=== PATIENT | male | born 1945 | race Caucasian/White ===

== ENCOUNTER → 2017-06-05 12:42 | Outpatient (CLI) | payer MEDICARE, SELFPAY ==
--- NOTE | 2017-06-05 12:49 | CT_ITS ---
STUDY: CT CHEST WITHOUT CONTRAST REASON FOR EXAM: Male, 71 years old. Lung nodule. RADIATION DOSAGE (If Supplied By Facility): CTDIvol = ( 19.73 ) mGy, DLP = ( 764.03 ) mGycm TECHNIQUE: Transaxial imaging was performed without the administration of intravenous contrast material. Individualized dose optimization techniques were used for this CT. COMPARISON: 04/30/2014. FINDINGS: There is COPD with interstitial fibrotic changes of the lungs. Findings are stable. No acute abnormality. No nodules or masses. There is no demonstrated pleural abnormality. Normal heart and pericardium. Normal mediastinum. Normal hilar regions. Normal unenhanced pulmonary arteries. Normal aorta arch and descending thoracic aorta. There are multi-level degenerative changes of the thoracic spine. There is no demonstrated abnormality of the visualized upper abdomen. CT/Chest without Contrast IMPRESSION: Stable fibrotic COPD with no acute chest disease and no nodules are seen. Electronically Signed: Fletcher Gold MD at 13:34 EDT , Service support ,
== END ==
PROVIDERS: Family Provider Internal Medicine; PCP Internal Medicine; Visit Provider Internal Medicine Pulmonary Disease
DX: R91.8 Other nonspecific abnormal finding of lung field (principal)
CPT/HCPCS: 71250

== ENCOUNTER → 2018-05-27 15:21 | Outpatient (CLI) | payer MEDICARE, SELFPAY ==
--- NOTE | 2018-05-27 11:30 | COLBX_PTH ---
PATIENT: LAILA HULL [facility] U#:[id number] AGE/SX: 79/M ROOM: RE05/27/[address]: Dr. Tyrel Nuñez MD : 1945 BED: DIS: SPEC #: [id number] RECD: 05/27/18 15:09 STATUS: MYLENE FITZPATRICKRolando #: [id number] WINNIE: 05/27/18 11:[address]: Tyrel Nuñez DEPT: SURGICAL PATHOLOGY RECD BY: Robel Chin ENTERED: 05/28/18 11:17 SP TYPE: COLON BX OTHR DR: Dr. Nickie Patterson, [facility] Tissues: A - Cecum, NOS B - Sigmoid colon biopsy Procedures: Surgery Specimen Level IV HEADER OPERATION: Colonoscopy with biopsy PRE-OP DIAGNOSIS: Screening/polyp TISSUE SUBMITTED: A. Cecum polyp biopsy, rule out adenoma, B. Sigmoid polyp, rule out adenoma MICROSCOPIC DIAGNOSIS A. Cecal polyp, biopsy: Fragments of tubular adenoma. B. Sigmoid colon polyp, biopsy: Fragments of hyperplastic polyp. AM:fito 05/29/18 MICROSCOPIC DESCRIPTION Slides are reviewed. GROSS DESCRIPTION A - Received in fixative is one container labeled with the patient's name and designated cecum polyp. The specimen consists of two irregular fragments of light acosta soft tissue that in aggregate measure 0.3 x 0.3 x 0.1 cm. The specimen is totally submitted in one cassette. B - Received in fixative is one container labeled with the patient's name and designated sigmoid. The specimen consists of two irregular fragments of light acosta soft tissue that in aggregate measure 0.6 x 0.3 x 0.1 cm. The specimen is totally submitted in one cassette. / AM:fito 05/28/18 TC:5 CPT: 93122 x2
== END ==
PROVIDERS: Family Provider Internal Medicine; PCP Internal Medicine; Referring Provider Internal Medicine Gastroenterology; Visit Provider Internal Medicine Gastroenterology
DX: Z12.11 Encounter for screening for malignant neoplasm of colon (principal); K63.5 Polyp of colon
CPT/HCPCS: 88305

== ENCOUNTER 2018-10-06 12:57 | Emergency (ER) | payer MEDICARE, SELFPAY ==
[2018-10-06 12:59] VITALS: BP 119/88; PULSE 68; RESP 16; TEMP 36.3; O2SAT 96; BMI 30.3
--- NOTE | 2018-10-06 13:29 | CT_ITS ---
STUDY: CT ABDOMEN AND PELVIS WITH CONTRAST REASON FOR EXAM: Male, 73 years old. Left groin pain RADIATION DOSAGE (If Supplied By Facility): CTDIvol = ( 13.75 ) mGy, DLP = ( 1285.29 ) mGycm TECHNIQUE: Transaxial images were obtained from the dome of the diaphragm to the symphysis pubis without oral contrast. 100 IV Isovue 370 was administered. Sagittal and coronal images were reconstructed. Individualized dose optimization techniques were used for this CT. COMPARISON: None. FINDINGS: There is minimal bibasilar atelectasis. The visualized portions of the heart are within normal limits. Normal liver. Normal gallbladder and extrahepatic biliary system. Normal spleen. Normal pancreas. Normal bilateral adrenal glands. There is a too small to characterize low-attenuation focus within the upper pole of the right kidney that likely reflects underlying cyst. There are a few 1 to 2 mm calcifications within the right kidney that are likely vascular in nature. Normal left kidney. Normal visualized stomach. Normal small intestine. There are multiple colonic diverticula consistent with diverticulosis. Arising from the antimesenteric side of the proximal sigmoid colon there is an ovoid fat-containing focus associated with adjacent stranding consistent with epiploic appendagitis. The appendix is visualized and appears normal. There is diffuse atherosclerotic calcification of the abdominal aorta, without a demonstrated aneurysm. Normal inferior vena cava. Normal retroperitoneum. There is a posterior bladder diverticulum right of midline. Normal abdominal wall. Normal osseous structures. CT/Abdomen/Pelvis W IV Cont ONLY IMPRESSION: Epiploic appendagitis of the proximal sigmoid colon. Colonic diverticulosis. Bladder diverticulum. Atherosclerosis. Electronically Signed: Alisa Mccall MD at 15:07 EDT Tel , Service support ,
--- NOTE | 2018-10-06 13:29 | EKG12_ITS ---
Test Reason : GENERAL ILLNESS Blood Pressure : / mmHG Vent. Rate : 063 BPM Atrial Rate : 063 BPM P-R Int : 158 ms QRS Dur : 082 ms QT Int : 446 ms P-R-T Axes : 065 023 044 degrees QTc Int : 456 ms Normal sinus rhythm Normal ECG Confirmed by SUNIL HAIR, ODESSA ([id number]), editorial project manager HERMINIO MONTALVO ([id number]) on 10/08/2018 11:32:54 AM Referred By: SAJAN Confirmed By:ODESSA BARBER MD
--- NOTE | 2018-10-06 13:30 | ED.VISSUMM ---
- ER Visit Summary Date of Service: 10/06/18 Chief Complaint: Lower abdominal pain History of Present Illness: The patient is a 73 M history of COPD and prior kidney stone. Patient states he was recently in [place] and developed on Sunday he developed lower abdominal pain since Sunday. Associated nausea but no vomiting or diarrhea. No constipation. No fever. No dysuria. He is able to urinate. No hematuria. States never had pain like this before. Seems to be getting better but still over the lower abdomen. Today went to stand up and he felt like he was in a fall over. He denies any headache or chest pain. No melena. No fever. No prior abdominal surgeries. Physical Examination: Appearing older male. No acute distress. Vital signs are stable and afebrile. Initial blood pressure is 119/88. H EENT exam unremarkable. Likely members. Neck nontender. No lymphadenopathy. Lungs clear to auscultation bilaterally. Heart regular rhythm no murmur. Abdomen is soft and non-distended. No signs of obstruction. No hernias or masses. His upper abdomen with nontender is mild tenderness in both lower quadrants. Not specifically over his appendix no right upper quadrant tenderness. No pulsatile mass. External exam is unremarkable without palpable hernias. Patient has positive bowel sounds. Remedies moves all 4. Calves are nontender without edema or cords. Neurologically is awake and alert. Back is nontender. Test Results: PVCs his white count of 9. Hemoglobin 17. Chemistries unremarkable gap 6 creatinine 1. Liver enzymes lipase normal. UA normal. EKG sinus rhythm rate of 63 with no acute abnormalities. CT abdomen pelvis shows epiploic appendagitis. Of the sigmoid colon. There is also diverticulosis. Appendix is seen and is normal. Emergency Department Course and Treatment: Older male with no abdominal pain. CAT scan labs will be obtained. Be given a liter of fluid. Repeat exam patient is doing better at 1525. Discussed all test results. Treatment Plan: Tylenol for pain. Follow-up with primary care physician if not improving. Return if worse. Disposition: Discharge Impression: Lower abdominal pain secondary to epiploic appendagitis of the sigmoid colon This note was generated with SensorTranation software. It may contain incorrect words, spelling, and punctuation that were not noted in review of the chart prior to signing ED Disposition - Plan for ED Patient: Referrals: Nickie Patterson DO [Primary Care Provider] -
[2018-10-06] MEDS: 0.9% Normal Saline 1,000 ML 1000 ML IV (13:42)
[2018-10-06] MEDS: Ondansetron 4 MG/2 ML Vial IV (13:42)
[2018-10-06 13:58] LABS: Absolute Lymphocyte Count 3.23 X10^3/uL (0.83-4.51); Absolute Neutrophil Count 5.7 X10^3/uL (2.0-7.7); Basophil# 0.05 X10^3/uL; Basophil% 0.5 % (0-1); Eosinophil# 0.11 X10^3/uL; Eosinophils% 1.1 % (0-5); Hematocrit 51.3 % (40-54); Hemoglobin 17.1 g/dL (13.0-16.5); Lymphocyte # 3.23 X10^3/ul (4.0); Mean Corp Hgb Conc 33.3 g/dL (32-36); Mean Corpuscular Hgb 29.3 pg (27.0-32.0); Mean Platelet Vol. 9.6 fl (6.2-12.0); Monocyte# 0.69 X10^3/uL; NRBC Flagged by Analyzer 0 % (0-5); Neutrophil # 5.68 X10^3/uL (2.7-7.7); Neutrophil % 58.1 % (47-70); Platelet Count 282 K/mm3 (150-450); RBC Distribution Width CV 15.1 % (11.6-14.6); RBC Distribution Width SD 47.1 fl (35.1-43.9); Red Blood Count 5.83 M/mm3 (4.6-6.2); White Blood Count 9.8 K/mm3 (4.4-11.0)
[2018-10-06 14:04] LABS: AST(SGOT) 27 U/L (15-37); Alanine Aminotransfer ALT/SGPT 33 U/L (16-61); Albumin, Serum 3.5 g/dL (3.2-5.0); Alkaline Phosphatase 71 U/L (45-117); Anion Gap 6 (5-15); BUN 17 mg/dL (7-18); BUN/Creat Ratio 17.1 RATIO (10-20); Bilirubin, Direct 0.12 mg/dL (0.00-0.30); Chloride 111 mmol/L (98-107); EST Glomerular Filtration Rate 78 mL/min (>60); Est Glom Filt Rate - Afr Amer 94 mL/min (>60); Estimated Creatinine Clearance 72.13 ml/min; Globulin 4.1 g/dL (2.2-4.2); Glucose 111 mg/dL (74-106); Lipase 134 U/L (73-393); Potassium 4.3 mmol/L (3.5-5.1); Protein, Total 7.6 g/dL (6.4-8.2); Sodium Level 140 mmol/L (136-145)
[2018-10-06 14:56] VITALS: BP 133/84; PULSE 63; RESP 15
[2018-10-06 15:00] LABS: Bacteria 0 SEEN /hpf (None Seen); Mucous, Urine 0 SEEN /hpf (<or=2+); Squamous Epithelial Cells - UA 0 SEEN /hpf (0-5); White Blood Cells 0 SEEN /hpf (0-5)
[2018-10-06 15:12] LABS: Color, Urine Yellow (Yellow); Glucose, Dipstick Normal (Normal); Ketone-Dipstick Negative (Negative); Leukocyte Esterase-Dipstick Negative /ul (Negative); Nitrite-Dipstick Negative (Negative); Occult Blood-Urine Negative /ul (Negative); Protein-Dipstick Negative (Negative); Urine Bilirubin Dipstick Negative (Negative); Urine Clarity Clear (Clear); Urine Urobilinogen Normal (Normal)
--- NOTE | 2018-10-06 15:26 | ED.DEP ---
ED Disposition - Plan for ED Patient: Disposition: Home or Assisted Living Referrals: Nickie Patterson DO [Primary Care Provider] - 3-5 Days if not improving Additional Instructions: Pain secondary to inflammation along your colon. Tylenol for pain. Follow-up if not improving return to ER if worse.
[2018-10-06 15:30] LABS: Red Blood Cells-Urine 0-5 SEEN /hpf (0-5)
[2018-10-06 15:47] VITALS: BP 139/92; PULSE 62; RESP 20; O2SAT 96
== END 2018-10-06 15:51 | disposition home or self-care (01) ==
PROVIDERS: Emergency Provider Emergency Medicine; Family Provider Internal Medicine; PCP Internal Medicine
DX: K63.89 Other specified diseases of intestine (principal); K57.30 Diverticulosis of large intestine without perforation or abscess without bleeding; N32.3 Diverticulum of bladder; J44.9 Chronic obstructive pulmonary disease, unspecified; E78.00 Pure hypercholesterolemia, unspecified; Z87.442 Personal history of urinary calculi; Z72.0 Tobacco use
CPT/HCPCS: 74177; 80048; 80076; 81001; 83690; 85025; 93005; 96361; 96374; 99284; J7030; Q9967; J2405

== ENCOUNTER 2018-10-13 15:14 | Emergency (ER) | payer MEDICARE, SELFPAY ==
[2018-10-13 15:16] VITALS: BP 118/74; PULSE 67; RESP 18; TEMP 36.6; O2SAT 93; BMI 30.3
[2018-10-13] MEDS: Diphth,Pertuss(Acell),Tet Vac 0.5 ML Vial IM (15:38)
[2018-10-13] MEDS: Morphine 4 MG/ML Syringe SC (15:38)
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
--- NOTE | 2018-10-13 16:34 | ED.DEP ---
ED Disposition - Plan for ED Patient: Instructions: R.IDelCDelE., Treating?Strains and Sprains Prescriptions: Naproxen [Naprosyn] 500 mg PO BID PRN #20 tab Prescription Printed Oxycodone HCl/Acetaminophen [Percocet 5/325] 1 tab PO Q6H PRN PRN 3 Days #12 tab PRN Reason: Pain Prescription Printed Referrals: Yandel Mejias MD [STAFF PHYSICIAN] -
[2018-10-13] MEDS: Naproxen 500 MG Tablet PO (16:49)
[2018-10-13 17:13] VITALS: BP 149/66; PULSE 67; RESP 15; O2SAT 98
== END 2018-10-13 17:14 | disposition home or self-care (01) ==
LOC: ED 15:33
PROVIDERS: Emergency Provider Emergency Medicine; Family Provider Internal Medicine; PCP Internal Medicine
DX: M25.512 Pain in left shoulder (principal); M25.572 Pain in left ankle and joints of left foot; M79.672 Pain in left foot; V29.9XXA Motorcycle rider (driver) (passenger) injured in unspecified traffic accident, initial encounter; Y93.9 Activity, unspecified; Y92.007 Garden or yard of unspecified non-institutional (private) residence as the place of occurrence of the external cause; Y99.9 Unspecified external cause status
CPT/HCPCS: 73030; 73590; 73630; 90715; 96372; 99284

== ENCOUNTER → 2018-10-29 15:42 | Outpatient (CLI) | payer MEDICARE, SELFPAY ==
[2018-10-13 15:16] VITALS: BMI 30.3
--- NOTE | 2018-10-29 15:46 | CT_ITS ---
Study: CT left foot without contrast CLINICAL HISTORY: Left foot fracture Prior study: None. PROCEDURE: Multiple computed tomographic images of the left foot were obtained at 2.5 mm intervals using 2.5 mm thick slices in the axial projection. Coronal and sagittal reconstructions were obtained. Radiation dose: Total exam DLP: 587.87 FINDINGS: There is evidence of old healed fracture of the distal tibial shaft. There is a plantar aspect calcaneal spur. There is a nondisplaced oblique fracture of the base of the second metatarsal. The remaining osseous structures and articular surfaces of the left foot appear intact. No significant degenerative changes are seen. The soft tissues are within normal limits. CT/Extremity Lower without Contra IMPRESSION: Nondisplaced oblique fracture of the base of the second metatarsal. Old healed fracture of the distal tibial shaft. Plantar aspect calcaneal spur. Electronically Signed: Twin Fitzgerald MD at 23:14 EDT , Service support ,
== END ==
PROVIDERS: Family Provider Internal Medicine; PCP Internal Medicine; Referring Provider Specialist; Visit Provider Specialist
DX: S43.52XA Sprain of left acromioclavicular joint, initial encounter (principal)
CPT/HCPCS: 73700

== ENCOUNTER 2018-11-18 09:51 | Outpatient (RCR) | payer MEDICARE, SELFPAY ==
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
--- NOTE | 2018-12-17 13:45 | HP.PT.NRP ---
HP - Discharge Summary (1) - Patient Information LAILA HULL was seen in my office for initial evaluation on 11/18/18. The following Plan of Care was established for this patient: Initial Frequency: 1-2x /Week Initial Duration: 2 Weeks - Anticipated Interventions Patient/Client Instruction: Educate patient on: Condition, Plan of Care For the Purpose of:: To decrease pain, To increase ROM, To improve muscle performance and motor function, To improve ability to perform ADL's, To increase tolerance to activity/condition/position, To improve performance and independence with ADL's, To decrease level of supervision to perform tasks, To decrease soft tissue restriction, To increase flexibility/ROM, To reduce risk of recurrence, To improve ability to perform tasks related to life management Therapeutic Exercise to Include: Strength training, Body mechanics, Postural training, Flexibilty training, Active ROM For the Purpose of:: To decrease pain, To increase ROM, To improve muscle performance and motor function, To improve ability to perform ADL's, To increase tolerance to activity/condition/position, To improve ability of physical actions for home/community/work/leisure, To improve ability to perform tasks related to life management TENS: Yes IF ES: Yes Cryotherapy (ice pack, ice massage): Yes Thermo therapy (hot pack): Yes Ultrasound (thermal/non thermal): Yes For the Purpose of:: To decrease pain, To increase ROM, To improve health of tissue, To decrease soft tissue restriction This patient was last seen in our office . Pertinent comments regarding their Physical therapy will appear below: Patient seen for Intial PT evaluation for shoulder pain for HEP. At this point I will be discontinuing this patient from physical therapy. I would be happy to see this patient again in the future if found appropriate by the physician. Thank you! Vik Lozano, PT, Cert MDT, OCS
== END 2018-11-18 19:00 | disposition home or self-care (01) ==
LOC: PT 09:51
PROVIDERS: Family Provider Internal Medicine; PCP Internal Medicine; Referring Provider Specialist; Visit Provider Specialist
DX: S43.52XD Sprain of left acromioclavicular joint, subsequent encounter (principal)
CPT/HCPCS: 97110; 97162

== ENCOUNTER → 2020-09-01 13:40 | Outpatient (CLI) | payer MEDICARE, SELFPAY ==
[2019-09-29 08:19] VITALS: BMI 30.3
--- NOTE | 2020-09-01 13:45 | CT_ITS ---
STUDY: LOW DOSE CT LUNG CANCER SCREENING REASON FOR EXAM: Male, 74 years old. TOBACCO ABUSE. The patient smoked 1 pack per day for 50 years. RADIATION DOSAGE (If Supplied By Facility): CTDIvol = ( 4.02 ) mGy, DLP = ( 133.91 ) mGycm TECHNIQUE: No contrast was administered. Low dose technique was utilized (average mAS-38 and kVp 120). 1.25 mm axial source images with a slice interval of 1.25-mm were reconstructed in lung windows. 2.5 mm axial source images with a slice interval of 2.5-mm were reconstructed in lung windows. 5.0 mm axial source images with a slice interval of 5.0-mm were reconstructed in soft tissue windows. Nodule measured using lung windows on PACS and/or independent workstation with automated measurement of minimum and maximum diameter. Nodule measurement reported as average diameter rounded to the nearest whole number. Growth is defined as an increase ins size of greater than 1.5 mm. COMPARISON: Comparison is made with prior study dated 06/05/2017. NODULES: No suspicious nodules are seen. Emphysema: Hyperinflation. Diffuse emphysematous changes with evidence of interstitial fibrosis and multiple areas of subpleural blebs. Stable examination. Endobronchial lesion: None Aorta: Atherosclerotic plaque formation of the aortic arch. Coronary arteries: Mild degree of coronary artery calcification. Heart: Unremarkable Pulmonary artery: Unremarkable Mediastinal nodes: Small benign-appearing mediastinal lymph nodes. Other chest and abdominal findings: CT/Low Dose CT Lung Screening IMPRESSION: Lung-RADS category 2 - Continue annual screening with LDCT in 12 months. IMPORTANT NOTES FOR USE: ACR Lung-RADS Version 1.1 Assessment Categories Release Date: 2018 Category: Coded 0-4 bases on nodule(s) with highest degree of suspicion. Negative screen is defined as categories 1 and 2; a positive screen is defined as categories 3 and 4. Category 3 and 4A nodules that are unchanged on interval CT should be coded as category 2, and individuals returned to screening in 12 months. Category 4X: Category 3 or 4 nodules with additional imaging findings that increase the suspicion of lung cancer, such as spiculation, GGN that doubles in size in 1 year, enlarged lymph notes, etc. Category Modifiers: S (significant finding unrelated to lung cancer) Electronically Signed: Isak Obando MD at 15:09 EDT , Service support ,
== END ==
PROVIDERS: PCP Internal Medicine; Referring Provider Internal Medicine; Visit Provider Internal Medicine
DX: Z87.891 Personal history of nicotine dependence (principal)
CPT/HCPCS: 71271

== ENCOUNTER 2021-03-08 11:15 | Outpatient (CLI) | payer MEDICARE, SELFPAY ==
--- NOTE | 2021-03-08 11:19 | RAD_ITS ---
STUDY: X-RAY CHEST REASON FOR EXAM: Male, 75 years old. COUGH TECHNIQUE: Single AP portable view of the chest. COMPARISON: Comparison is made with prior study dated 01/01/2015. FINDINGS: Hyperinflation. Increased interstitial markings in both lungs worse at the lung bases suggest a progressive interstitial fibrosis. There is evidence of a scarring of both lung apices. Normal size heart. Normal mediastinum and jerome. Normal visualized pulmonary arteries. There is atherosclerotic calcification of the aortic arch with tortuosity. There are diffuse degenerative changes of the visualized thoracic spine. Normal visualized ribs, clavicles, and shoulders. There is no demonstrated abnormality of the visualized soft tissue structures of the upper abdomen. RAD/Chest PA and Lateral IMPRESSION: Hyperinflation. Findings suggestive of a interstitial pulmonary fibrosis worse at the lung bases and scarring at the lung apices. Electronically Signed: Isak Obando MD at 12:13 EST ,
== END 2021-03-08 23:59 | disposition short-term general hospital (02) ==
PROVIDERS: PCP Internal Medicine; Referring Provider Nurse Practitioner; Visit Provider Nurse Practitioner
DX: R05.9 Cough, unspecified (principal)
CPT/HCPCS: 71046

== ENCOUNTER → 2021-05-31 | Outpatient (CLI) | payer MEDICARE, SELFPAY ==
[2021-05-31 18:08] LABS: Erythrocyte Sedimentation Rate 24 mm/hr (0-20)
[2021-05-31 18:09] LABS: Absolute Lymphocyte Count 1.55 X10^3/uL (0.83-4.51); Absolute Neutrophil Count 7.8 X10^3/uL (2.0-7.7); Basophil# 0.04 X10^3/uL; Basophil% 0.4 % (0-1); Eosinophil# 0.03 X10^3/uL; Eosinophils% 0.3 % (0-5); Hematocrit 52.2 % (40-54); Lymphocyte # 1.55 X10^3/ul (0.83-4.51); Lymphocyte % 15.5 % (19-41); Mean Corp Hgb Conc 32.6 g/dL (32-36); Mean Corpuscular Hgb 28.8 pg (27.0-32.0); Mean Corpuscular Volume 88.3 fL (80-94); Mean Platelet Vol. 9.9 fl (6.2-12.0); Monocyte# 0.53 X10^3/uL; Monocyte% 5.3 % (0-10); NRBC Flagged by Analyzer 0 % (0-5); Neutrophil # 7.82 X10^3/uL (2.7-7.7); Neutrophil % 77.9 % (47-70); Platelet Count 306 K/mm3 (150-450); RBC Distribution Width CV 16.3 % (11.6-14.6); RBC Distribution Width SD 52.3 fl (35.1-43.9); Red Blood Count 5.91 M/mm3 (4.6-6.2)
[2021-05-31 18:16] LABS: AST(SGOT) 23 U/L (15-37); Alanine Aminotransfer ALT/SGPT 47 U/L (16-61); Albumin, Serum 3.4 g/dL (3.2-5.0); Alkaline Phosphatase 50 U/L (45-117); Bilirubin, Direct 0.16 mg/dL (0.00-0.30); CRP 6.43 mg/L (0.0-3.0); Globulin 3.9 g/dL (2.2-4.2); Protein, Total 7.3 g/dL (6.4-8.2); Rheumatoid Factor < 10.0 IU/mL (<15)
[2021-06-02 14:10] LABS: Anti-Scleroderma-70 AB <0.2 AI (0.0-0.9)
[2021-06-02 17:25] LABS: ANTINUCLEAR ANTIBODIES DIRECT Negative (Negative); Anti-dsDNA Ab 1 IU/mL (0-9)
[2021-06-03 08:10] LABS: Angiotensin Convert Enzyme 20 U/L (14-82); Cytoplasmic Ab (C-ANCA) <1:20 titer (Neg:<1:20)
[2021-06-03 09:33] LABS: Anti-Smooth Muscle ABS 4 Units (0-19); CCP IgG Antibodies 7 units (0-19); Perinuclear Ab (P-ANCA) <1:20 titer (Neg:<1:20)
== END | disposition home or self-care (01) ==
PROVIDERS: PCP Internal Medicine; Referring Provider Internal Medicine Pulmonary Disease; Visit Provider Internal Medicine Pulmonary Disease
DX: J84.10 Pulmonary fibrosis, unspecified (principal)
CPT/HCPCS: 36415; 80076; 82164; 83516; 85025; 85652; 86038; 86140; 86200; 86225; 86235; 86256; 86431

== ENCOUNTER → 2021-06-24 | Outpatient (CLI) | payer MEDICARE, SELFPAY ==
--- NOTE | 2021-06-24 08:00 | CT_ITS ---
INDICATION: SOB. FIBROSIS EXAMINATION: CT CHEST WITHOUT CONTRAST - CT Chest High Resolution WO Contrast Injection TECHNIQUE: Helically acquired images were obtained of the chest. A radiation dose optimization technique was used for this scan. IV Contrast dosage and agent: None. COMPARISON: Comparison is made with prior study dated 09/01/2020. FINDINGS: LUNGS, PLEURA AND LARGE AIRWAYS: Diffuse increased interstitial markings involving both lungs and both upper and lower lobes. This is worse in the upper lobes with subpleural blebs and small bulla formation. Findings are in keeping with chronic interstitial fibrosis. No pleural effusion or thickening. No pneumothorax. THYROID: No thyroid lesions. HEART AND PERICARDIUM: Heart size is normal. No pericardial effusion. CORONARY ARTERIES: Coronary artery calcification VESSELS: Mild degree of calcified atherosclerotic plaques of the aortic arch MEDIASTINUM AND ABE: Small benign appearing mediastinal lymph nodes. Esophagus is unremarkable. No hiatal hernia. Calcified right hilar lymph nodes. UPPER ABDOMEN: Punctate calculus in the upper pole calyx of the right kidney. BONES: Degenerative changes of the thoracic spine. CT/Chest without Contrast IMPRESSION: Findings included with diffuse chronic contusions or fibrosis with honeycombing worse in the upper lobes. There has been essentially no change. Electronically Signed: Isak Obando MD at 10:08 EDT ,
== END | disposition home or self-care (01) ==
PROVIDERS: PCP Internal Medicine; Referring Provider Internal Medicine Pulmonary Disease; Visit Provider Internal Medicine Pulmonary Disease
DX: J84.10 Pulmonary fibrosis, unspecified (principal)
CPT/HCPCS: 71250

== ENCOUNTER 2021-08-02 10:16 | Outpatient (RCR) | payer MEDICARE, SELFPAY ==
[2021-08-02 12:54] LABS: AST(SGOT) 28 U/L (15-37); Alanine Aminotransfer ALT/SGPT 41 U/L (16-61); Albumin, Serum 3.3 g/dL (3.2-5.0); Alkaline Phosphatase 59 U/L (45-117); Bilirubin, Direct 0.16 mg/dL (0.00-0.30); Globulin 3.8 g/dL (2.2-4.2); Protein, Total 7.1 g/dL (6.4-8.2)
== END 2021-08-04 16:00 | disposition home or self-care (01) ==
LOC: MTLAB 10:16
PROVIDERS: PCP Internal Medicine; Referring Provider Internal Medicine Pulmonary Disease; Visit Provider Internal Medicine Pulmonary Disease
DX: Z79.899 Other long term (current) drug therapy (principal)
CPT/HCPCS: 36415; 80076

== ENCOUNTER 2021-08-29 09:29 | Outpatient (RCR) | payer MEDICARE, SELFPAY ==
[2021-08-29 12:29] LABS: AST(SGOT) 33 U/L (15-37); Alanine Aminotransfer ALT/SGPT 56 U/L (16-61); Albumin, Serum 3.6 g/dL (3.2-5.0); Alkaline Phosphatase 56 U/L (45-117); Bilirubin, Direct 0.14 mg/dL (0.00-0.30); Globulin 3.8 g/dL (2.2-4.2); Protein, Total 7.4 g/dL (6.4-8.2)
== END 2021-09-04 03:25 | disposition home or self-care (01) ==
LOC: MTLAB 09:29
PROVIDERS: PCP Internal Medicine; Referring Provider Internal Medicine Pulmonary Disease; Visit Provider Internal Medicine Pulmonary Disease
DX: Z79.899 Other long term (current) drug therapy (principal)
CPT/HCPCS: 36415; 80076

== ENCOUNTER 2021-09-27 10:20 | Outpatient (RCR) | payer MEDICARE, SELFPAY ==
[2021-09-27 12:50] LABS: AST(SGOT) 30 U/L (15-37); Alanine Aminotransfer ALT/SGPT 46 U/L (16-61); Albumin, Serum 3.4 g/dL (3.2-5.0); Alkaline Phosphatase 53 U/L (45-117); Bilirubin, Direct 0.18 mg/dL (0.00-0.30); Globulin 3.8 g/dL (2.2-4.2); Protein, Total 7.2 g/dL (6.4-8.2)
== END 2021-09-27 18:00 | disposition home or self-care (01) ==
LOC: MTLAB 10:20
PROVIDERS: PCP Internal Medicine; Referring Provider Internal Medicine Pulmonary Disease; Visit Provider Internal Medicine Pulmonary Disease
DX: Z79.899 Other long term (current) drug therapy (principal)
CPT/HCPCS: 36415; 80076

== ENCOUNTER → 2021-11-22 | Outpatient (CLI) | payer MEDICARE, SELFPAY ==
--- NOTE | 2021-11-22 08:10 | CT_ITS ---
STUDY: CT CHEST WITHOUT CONTRAST REASON FOR EXAM: Male, 76 years old. DYSPNEA. EX-SMOKER, ? PULMONARY FIBROSIS RADIATION DOSAGE (If Supplied By Facility): CTDIvol = ( 19.13 ) mGy, DLP = ( 726.73 ) mGycm TECHNIQUE: Transaxial imaging was performed without the administration of intravenous contrast material. Multiplanar coronal and sagittal images were reformatted. Individualized dose optimization techniques were used for this CT. COMPARISON: Comparison is made with prior study dated 06/24/2021. FINDINGS: CHEST Diffuse emphysematous changes with bullous formation. There is also diffuse increased interstitial markings with subpleural blebs in keeping with chronic interstitial fibrosis. There has been mild progression as compared to prior study. There is no demonstrated pleural abnormality. There are calcifications of the coronary arteries. There are multiple small lymph nodes within the mediastinum, which are normal in size and morphology most compatible with reactive lymph hyperplasia. Calcified subcarinal lymph nodes. Normal hilar regions. Normal unenhanced pulmonary arteries. There is atherosclerotic calcification of the aortic arch with tortuosity and elongation of the aortic arch and descending thoracic aorta. There are multi-level degenerative changes of the thoracic spine. There is no demonstrated abnormality of the visualized upper abdomen. CT/Chest without Contrast IMPRESSION: Diffuse emphysematous changes with the findings in keeping with chronic interstitial fibrosis. Since prior study, there has been a mild degree of progressive scarring. Electronically Signed: Isak Obando MD at 13:26 EDT ,
== END | disposition home or self-care (01) ==
PROVIDERS: PCP Internal Medicine
DX: J84.9 Interstitial pulmonary disease, unspecified (principal); R09.02 Hypoxemia; R06.09 Other forms of dyspnea
CPT/HCPCS: 71250

== ENCOUNTER → 2021-12-14 | Outpatient (CLI) | payer MEDICARE, SELFPAY ==
--- NOTE | 2021-12-14 10:05 | ECHOCS_ITS ---
Version 2 Reason For Study: COPD Procedure This was a 2D Doppler, Color Flow transthoracic echocardiogram. The study was technically difficult. Contrast injection was performed. Exam performed in department. Left Ventricle Normal LV size. Left ventricular systolic function is normal. The estimated ejection fraction is 55 %. Stage 1 diastolic dysfunction. No regional wall motion abnormalities noted. Right Ventricle Normal RV size. Normal systolic function. Atria Normal left atrium. Normal right atrium. Mitral Valve Normal mitral valve. Tricuspid Valve Normal tricuspid valve. Mild tricuspid valve insufficiency. Pulmonary artery systolic pressure is 34 mmHg. Aortic Valve Normal aortic valve. Trisinus/trileaflet aortic valve. Pulmonic Valve Normal pulmonic valve. Great Vessels Normal aortic root. The pulmonary artery is normal size. Normal inferior vena cava. Pericardium/Pleural No pericardial effusion. Medication 22 gauge I.V. with prn adaptor inserted into right arm. Diluted definity 1ml given slow IV push to enhance endocardial definition. MMode/2D Measurements & Calculations LVIDd: 5.0 cm IVSd: 1.2 cm Ao root diam: 3.5 cm LVIDs: 3.7 cm LVPWd: 1.2 cm FS: 25.7 % LAV(MOD-sp4): 38.3 ml LVAd ap4: 25.7 cm2 SV(MOD-sp4): 34.8 ml LVLd ap4: 7.5 cm EDV(MOD-sp4): 70.2 ml EDV(sp4-el): 74.9 ml LVAs ap4: 17.0 cm2 LVLs ap4: 6.6 cm ESV(MOD-sp4): 35.3 ml ESV(sp4-el): 37.4 ml EF(MOD-sp4): 49.6 % EF(sp4-el): 50.1 % SV(sp4-el): 37.5 ml LA A4 area: 15.9 cm2 LA dimension(2D): 3.3 cm RA A4 area: 12.6 cm2 Time Measurements MV dec time: 0.26 sec Doppler Measurements & Calculations MV E max jose angel: 46.3 cm/sec Lat Peak E' Jose Angel: 8.3 cm/sec Med Peak E' Jose Angel: 8.4 cm/sec MV A max jose angel: 79.2 cm/sec E/E' lat: 5.6 E/E' med: 5.5 MV E/A: 0.58 MV V2 max: 86.4 cm/sec MV dec slope: 179.2 cm/sec2 Ao V2 max: 99.5 cm/sec MV max P.0 mmHg Ao max P.0 mmHg MV V2 mean: 35.8 cm/sec Ao V2 mean: 68.6 cm/sec MV mean P.70 mmHg Ao mean P.1 mmHg MV V2 VTI: 24.5 cm Ao V2 VTI: 23.5 cm LV V1 max: 79.8 cm/sec TR max jose angel: 274.9 cm/sec LV V1 max P.6 mmHg TR max P.2 mmHg LV V1 mean P.1 mmHg LV V1 mean: 48.0 cm/sec LV V1 VTI: 15.7 cm ECHO/Echo Complete W/ Contrast Interpretation Summary Normal LV size. Left ventricular systolic function is normal. The estimated ejection fraction is 55 %. Pulmonary artery systolic pressure is 34 mmHg. Stage 1 diastolic dysfunction. Contrast injection was performed. Ordering Physician: ANTONIO LORA Referring Physician: ANTONIO LORA Performed By: Myradna Jansen RCS
== END | disposition home or self-care (01) ==
PROVIDERS: PCP Internal Medicine
DX: J84.9 Interstitial pulmonary disease, unspecified (principal); R09.02 Hypoxemia; R06.09 Other forms of dyspnea
CPT/HCPCS: 93306; Q9957; A4216; C8929

== ENCOUNTER → 2022-11-22 | Outpatient (CLI) | payer MEDICARE, SELFPAY ==
[2022-11-22 11:05] LABS: AST(SGOT) 21 U/L (15-37); Alanine Aminotransfer ALT/SGPT 39 U/L (16-61); Albumin, Serum 3.3 g/dL (3.2-5.0); Alkaline Phosphatase 54 U/L (45-117); Bilirubin, Direct 0.27 mg/dL (0.00-0.30); Globulin 4.1 g/dL (2.2-4.2); Protein, Total 7.4 g/dL (6.4-8.2)
== END | disposition home or self-care (01) ==
LOC: MTLAB 09:28
PROVIDERS: PCP Internal Medicine; Referring Provider Internal Medicine Pulmonary Disease; Visit Provider Internal Medicine Pulmonary Disease
DX: J84.10 Pulmonary fibrosis, unspecified (principal)
CPT/HCPCS: 36415; 80076

== ENCOUNTER → 2022-12-07 | Outpatient (CLI) | payer MEDICARE, SELFPAY ==
--- NOTE | 2022-12-07 12:19 | CT_ITS ---
STUDY: CT SOFT TISSUE NECK WITH CONTRAST REASON FOR EXAM: Male, 77 years old. Otalgia, right ear for 5 to 6 weeks. RADIATION DOSAGE (If Supplied By Facility): CTDIvol = ( 18.81 ) mGy, DLP = ( 667.23 ) mGycm TECHNIQUE: The patient was scanned in a multi-detector CT scanner. High resolution transaxial imaging was performed following intravenous administration of IV 75mL Isovue-370. Sagittal and coronal images were reconstructed. Individualized dose optimization techniques were used for this CT. COMPARISON: None. FINDINGS: Normal bilateral parotid glands. Normal bilateral manager business information spaces. Normal bilateral parapharyngeal spaces. Normal bilateral carotid spaces. Normal bilateral sublingual and submandibular glands and spaces. Normal visualized nasopharynx. Normal retropharyngeal space. Normal perivertebral space. Normal visualized bilateral faucial tonsils. The visualized tongue, tongue base and oropharynx are normal. There are small lymph nodes of the neck, with preservation of normal fadia architecture, consistent with a reactive lymph hyperplasia. There is no demonstrated solid or cystic mass lesion. There is no abnormal contrast enhancement. Normal epiglottis, bilateral vallecula and hypopharynx. The pre-epiglottic and paraglottic adipose spaces are normal. Normal visualized bilateral piriform sinuses, aryepiglottic folds, vocal cords, and arytenoid-cricoid articulations. Normal subglottic trachea. Normal bilateral lobes of the thyroid gland. Diffuse emphysematous changes are seen in the upper lobes. Atherosclerotic plaque formation of the aortic arch. Mucosal thickening at the base of the right maxillary sinus. There is multilevel degenerative changes of the cervical spine. CT/Soft Tissue Neck WITH Contrast IMPRESSION: No acute abnormality is seen. Electronically Signed: Isak Obando MD at 12:47 EDT ,
[2022-12-07 12:44] LABS: CREATININE FINGERSTICK 1.4 mg/dL (0.70-1.30)
== END | disposition home or self-care (01) ==
LOC: CT 12:17
PROVIDERS: PCP Internal Medicine; Referring Provider Otolaryngology; Visit Provider Otolaryngology
DX: H92.01 Otalgia, right ear (principal)
CPT/HCPCS: 70491; Q9967

== ENCOUNTER → 2023-04-18 | Outpatient (CLI) | payer MEDICARE, SELFPAY ==
--- NOTE | 2023-04-19 | LES_PTH ---
PATHOLOGY RESULTS PATIENT: LAILA HULL [facility] U#:[id number] AGE/SX: 77/M ROOM: RE04/18/[address]: Dr. Nickie Patterson DO : 1945 BED: DIS: 04/18/2023 SPEC #: [id number] RECD: 04/19/23 11:31 STATUS: MYLENE CARL #: [id number] WINNIE: 04/19/23 00:[address]: Nickie Patterson DEPT: SURGICAL PATHOLOGY RECD BY: Lupe Arzate ENTERED: 04/19/23 11:31 SP TYPE: Lesion Tissues: Skin of eyelid, NOS Procedures: Surgery Specimen Level IV HEADER OPERATION: Left brow area, shave biopsy PRE-OP DIAGNOSIS: Left brow area sudden growth increasing, history of skin cancer TISSUE SUBMITTED: Left brow MICROSCOPIC DIAGNOSIS Left brow, lesion, shave biopsy; Seborrheic keratosis. Negative for malignancy. See comment. BRIGHT/ 04/20/2023 COMMENT The specimen consists of superficial portion of the lesion. If there is high suspicion of malignancy complete excision of the lesion is suggested, if clinically indicated. MICROSCOPIC DESCRIPTION Slides are reviewed. GROSS DESCRIPTION Received in fixative is one container labeled with the patient's name and designated Left eyebrow. The specimen consists of a piece of acosta-white skin measuring 0.3x 0.3 x 0.1cm. The specimen is totally submitted in one cassette. SJ/ mr 04/19/2023 TC:1 CPT: 95710
== END | disposition home or self-care (01) ==
LOC: LABSPEC 16:06
PROVIDERS: PCP Internal Medicine; Referring Provider Internal Medicine; Visit Provider Internal Medicine
DX: L98.8 Other specified disorders of the skin and subcutaneous tissue (principal); Z85.828 Personal history of other malignant neoplasm of skin
CPT/HCPCS: 88305

== ENCOUNTER → 2023-05-16 | Outpatient (CLI) | payer MEDICARE, SELFPAY ==
[2023-05-16 12:10] LABS: Absolute Lymphocyte Count 4.59 X10^3/uL (0.83-4.51); Absolute Neutrophil Count 3.8 X10^3/uL (2.0-7.7); Basophil# 0.06 X10^3/uL; Basophil% 0.6 % (0-1); Eosinophil# 0.28 X10^3/uL; Eosinophils% 2.9 % (0-5); Hematocrit 54.7 % (40-54); Hemoglobin 17.5 g/dL (13.0-16.5); Lymphocyte # 4.59 X10^3/ul (0.83-4.51); Lymphocyte % 47.3 % (19-41); Mean Corpuscular Hgb 29.6 pg (27.0-32.0); Mean Corpuscular Volume 92.4 fL (80-94); Mean Platelet Vol. 9.6 fl (6.2-12.0); Monocyte# 0.99 X10^3/uL; Monocyte% 10.2 % (0-10); NRBC Flagged by Analyzer 0 % (0-5); Neutrophil # 3.76 X10^3/uL (2.7-7.7); Neutrophil % 38.7 % (47-70); Platelet Count 257 K/mm3 (150-450); RBC Distribution Width SD 53.7 fl (35.1-43.9); Red Blood Count 5.92 M/mm3 (4.6-6.2); White Blood Count 9.7 K/mm3 (4.4-11.0)
== END | disposition home or self-care (01) ==
LOC: MTLAB 11:00
PROVIDERS: PCP Internal Medicine; Referring Provider Internal Medicine Pulmonary Disease; Visit Provider Internal Medicine Pulmonary Disease
DX: R06.02 Shortness of breath (principal)
CPT/HCPCS: 36415; 85025

== ENCOUNTER → 2023-07-25 | Outpatient (CLI) | payer MEDICARE, SELFPAY ==
--- NOTE | 2023-07-25 14:40 | CT_ITS ---
INDICATION: ILD EXAMINATION: CT CHEST WITHOUT CONTRAST - CT Chest W/O Contrast Injection TECHNIQUE: Helically acquired images were obtained of the chest. The protocol utilizes one or more of the following dose reduction techniques: automated exposure control, adjustment of mA and/or kV according to patient size,and/or use of iterative reconstruction technique. IV Contrast dosage and agent: None. RADIATION DOSAGE (If Supplied By Facility): CTDIvol = ( 23.56 ) mGy, DLP = ( 885.69 ) mGycm COMPARISON: Prior study dated: 11/22/2021 FINDINGS: LUNGS, PLEURA AND LARGE AIRWAYS: Persistent extensive emphysematous and cystic changes with honeycomb pattern of the lungs essentially unchanged since the prior exam. No new infiltrate is seen. No evidence of new pulmonary nodules. No pleural effusion or thickening. No pneumothorax. THYROID: No thyroid lesions. HEART AND PERICARDIUM: Heart size is normal. No pericardial effusion. CORONARY ARTERIES: Coronary artery calcification is seen. VESSELS: Atherosclerotic calcifications of the thoracic aorta with mild tortuosity without evidence of aneurysm. MEDIASTINUM AND ABE: Stable few mediastinal nodes. No evidence of hilar or mediastinal adenopathy. Esophagus is unremarkable. No hiatal hernia. UPPER ABDOMEN: No acute pathology. BONES: No suspicious lytic or blastic abnormality. CT/Chest without Contrast IMPRESSION: 1. Chronic interstitial fibrosis and edematous changes essentially unchanged since prior exam. 2. No new pulmonary infiltrates, adenopathy or pleural effusions. Electronically Signed: David Shrestha MD at 14:32 EDT ,
== END | disposition home or self-care (01) ==
PROVIDERS: PCP Internal Medicine
DX: J84.9 Interstitial pulmonary disease, unspecified (principal)
CPT/HCPCS: 71250

== ENCOUNTER → 2023-11-20 | Outpatient (CLI) | payer MEDICARE, SELFPAY ==
--- NOTE | 2023-11-20 12:46 | ECHOCS_ITS ---
Reason For Study: COPD, JOSS, Hypoxemia Procedure This was a 2D Doppler, Color Flow transthoracic echocardiogram. The study was technically difficult. Contrast injection was performed. Unable to perform RV Strain d/t poor image quality. Exam performed in department. Left Ventricle Normal LV size. Left ventricular systolic function is normal. The left ventricular ejection fraction is 55 %. Stage 1 diastolic dysfunction. No regional wall motion abnormalities noted. Right Ventricle Normal RV size. Normal systolic function. Atria Normal left atrium. Normal right atrium. Mitral Valve Normal mitral valve. Tricuspid Valve Normal tricuspid valve. Mild to moderate (1-2+) tricuspid valve insufficiency. Pulmonary artery systolic pressure is 50 mmHg. Aortic Valve Normal aortic valve. Pulmonic Valve Normal pulmonic valve. Great Vessels Normal aortic root. The pulmonary artery is normal size. Inferior vena cava collapse with respiration. Pericardium/Pleural No pericardial effusion. Medication 22 gauge I.V. with prn adaptor inserted into right arm. Diluted definity 2ml given slow IV push to enhance endocardial definition. MMode/2D Measurements & Calculations LVIDd: 4.5 cm IVSd: 1.2 cm LVOT diam: 2.2 cm LVIDs: 3.7 cm LVPWd: 0.71 cm RVDd: 4.0 cm FS: 17.2 % LVOT area: 3.8 cm2 LA dimension: 3.1 cm asc Aorta Diam: 3.4 cm LAV(MOD-sp4): 35.5 ml LVAd ap4: 31.1 cm2 SV(MOD-sp4): 50.7 ml SV(sp4-el): 54.5 ml LVLd ap4: 8.1 cm EDV(MOD-sp4): 95.6 ml EDV(sp4-el): 101.1 ml LVAs ap4: 19.6 cm2 LVLs ap4: 7.0 cm ESV(MOD-sp4): 44.9 ml ESV(sp4-el): 46.6 ml EF(MOD-sp4): 53.0 % EF(sp4-el): 53.9 % LA A4 area: 13.9 cm2 RA A4 area: 15.6 cm2 TAPSE: 2.0 cm Time Measurements MV dec time: 0.42 sec Doppler Measurements & Calculations MV E max jose angel: 43.3 cm/sec Lat Peak E' Jose Angel: 10.1 cm/sec Med Peak E' Jose Angel: 7.0 cm/sec MV A max jose angel: 90.3 cm/sec E/E' lat: 4.3 E/E' med: 6.2 MV E/A: 0.48 MV V2 max: 102.2 cm/sec MV P1/2t max jose angel: 50.0 cm/sec Ao V2 max: 114.7 cm/sec MV max P.2 mmHg MV P1/2t: 146.7 msec Ao max P.3 mmHg MV V2 mean: 42.6 cm/sec Ao V2 mean: 86.0 cm/sec MV mean P.94 mmHg MV dec slope: 99.8 cm/sec2 Ao mean P.2 mmHg MV V2 VTI: 31.4 cm MVA(P1/2t): 1.5 cm2 Ao V2 VTI: 24.8 cm AV (velocity ratio): 0.61 MVA(VTI): 1.8 cm2 ASCENCION(I,D): 2.3 cm2 ASCENCION(V,D): 2.2 cm2 LV V1 max: 67.6 cm/sec SV(LVOT): 56.9 ml PA V2 max: 77.0 cm/sec LV V1 max P.8 mmHg PA max PG (full): 1.1 mmHg LV V1 mean P.1 mmHg LV V1 mean: 49.8 cm/sec LV V1 VTI: 15.1 cm TR max jose angel: 342.1 cm/sec TR max P.8 mmHg ECHO/Echo Complete W/ Contrast Interpretation Summary Normal LV size. Left ventricular systolic function is normal. The left ventricular ejection fraction is 55 %. Pulmonary artery systolic pressure is 50 mmHg. Stage 1 diastolic dysfunction. Contrast injection was performed. Ordering Physician: Oneil Ambrocio V Referring Physician: Oneil Ambrocio V Performed By: Say Mathis RCS
== END | disposition home or self-care (01) ==
PROVIDERS: PCP Internal Medicine; Referring Provider Internal Medicine Pulmonary Disease; Visit Provider Internal Medicine Pulmonary Disease
DX: G47.33 Obstructive sleep apnea (adult) (pediatric) (principal)
CPT/HCPCS: 93306; Q9957; A4216; C8929

== ENCOUNTER → 2023-12-12 | Outpatient (CLI) | payer MEDICARE, SELFPAY | END | disposition home or self-care (01) | LOC: MTRAD 17:06 | PROVIDERS: PCP Internal Medicine; Referring Provider Internal Medicine; Visit Provider Internal Medicine | DX: R05.9 Cough, unspecified (principal) | CPT/HCPCS: 71046 ==

== ENCOUNTER 2023-12-30 05:55 | Observation (INO) | payer MEDICARE, SELFPAY ==
[2023-12-30] VITALS (11 sets, daily range): BP systolic 115–141; BP diastolic 69–92; PULSE 60–87; RESP 12–18; TEMP 36.6–36.9; O2SAT 93–97; BMI 33.1
--- NOTE | 2023-12-30 06:03 | CT_ITS ---
HISTORY: Right lower quadrant pain with localized peritonitis. TECHNIQUE: Helically acquired images were obtained of the abdomen and pelvis after the intravenous administration of 100 mL Isovue-370. A radiation dose optimization technique was used for this scan. 471 images. COMPARISON: None. FINDINGS: LOWER CHEST: Emphysema and atelectasis in the lung bases. BOWEL: Bowel including appendix nondilated. No terminal ileal or periappendiceal inflammatory change observed. Colonic diverticulosis with mild mural thickening and perisigmoid stranding of the redundant sigmoid colon in the right lower quadrant. PERITONEUM: No gross free air, pericolonic fluid collection, or significant ascites. LIVER: Tiny cyst adjacent to the gallbladder fossa. GALLBLADDER/BILIARY TREE: Gallbladder present. SPLEEN/PANCREAS/ADRENAL GLANDS: Unremarkable. KIDNEYS: 2 mm bilateral renal calculi without hydronephrosis. Simple bilateral cysts measuring up to 1 cm; follow-up not indicated. VESSELS: Mildly ectatic abdominal aorta with mild atherosclerosis. PELVIC ORGANS: Mild prostate calcifications. Small right bladder diverticulum. ABDOMINAL WALL: Small fat-containing umbilical and inguinal hernias. BONES: Degenerative change. CT/Abdomen/Pelvis W IV Cont ONLY IMPRESSION: Acute sigmoid diverticulitis with right lower quadrant inflammation. No perforation or abscess. Small nonobstructing bilateral renal calculi. Presence of pulmonary emphysema on CT is an independent risk factor for lung cancer. Consider LDCT lung cancer screening in the future. Electronically Signed: Ana Anderson MD at 8:12 EST ,
--- NOTE | 2023-12-30 06:05 | EDS_ITS ---
HPI <Dr. Sam Florian MD - Last Filed: 12/30/23 12:40> History of Present Illness Chief Complaint: Abd Pain Detail of Chief Complaint: Pain right lower quadrant that started Sunday evening Informant: patient and spouse/S.O. Onset/Context/Timing Onset: Days (December 27, Sunday evening) Context: Sudden Onset Timing: Continuous Quality: Pain Location: Right lower quadrant Current Severity: Mild Maximum Severity: Severe Worsened by: Walking, car ride Relieved by: Nothing Associated Symptoms Associated Symptoms: Nausea Narrative Narrative: Patient is AN 78-year-old male with history of COPD, basal cell carcinoma, squamous cell carcinoma who is on medication that causes him diarrhea. He is on the medicine for his lungs. He presents because of worsening pain. The pain is in the right lower quadrant. The pain started on Sunday evening. It was not significant. The pain got worse Sunday and is much worse now and reason why he presents. He states he has pain with walking. Getting in the car caused him significant discomfort as well as hitting bumps. He denies history of renal or ureterolithiasis. He denies dysuria, frequency, urgency or hematuria. He denies being bloated. He has no cardiorespiratory symptoms. Prior similar symptoms: No Recent Illness/Hospitalization: No PFSH <Dr. Sam Florian MD - Last Filed: 12/30/23 12:40> [facility] Medical History sebaceous cyst back Family hx of colon cancer COPD (chronic obstructive pulmonary disease) Back problem Home Medications ?Medication ?Instructions ?Recorded ?Last Taken ?Type fluticasone fur. 100 mcg-umeclid 1 puff inhalation DAILY 10/06/18 10/05/18 History 62.5 mcg-vilant 25 mcg inhalat.powder rosuvastatin 10 mg tablet 10 mg PO DAILY 10/06/18 Unknown History naproxen 500 mg tablet 500 mg PO BID PRN #20 tabs 10/13/18 Unknown Rx azelastine 137 mcg (0.1 %) nasal 1 spray intranasal BID 12/30/23 Unknown History spray nintedanib 150 mg capsule (Ofev) 150 mg PO BID 12/30/23 Unknown History vitamin D3 25 mcg (1,000 unit)-vit 1 tab PO DAILY vitamin 12/30/23 12/29/23 11:2 3 History K2 90 mcg disintegrating tablet 1 TAB (D3 Plus K2 Dots) Allergy/AdvReac Type Severity Reaction Status Date / Time No Known Allergies Allergy Verified 12/30/23 05:56 Family History Mother Breast cancer Daughter Colon cancer Surgical History history excision sebaceous cyst right lower ba (~09/22/19) Hx of colonoscopy Hx of squamous cell carcinoma excision History of basal cell carcinoma (BCC) excision Social History Smoking Status: Light Smoker (<10/day) second hand exposure: No alcohol intake: current alcohol intake frequency: holidays/special occasions only substance use type: does not use caffeine: Yes what type of physical activity do you participate in: none frequency: does not exercise ROS <Dr. Sam Florian MD - Last Filed: 12/30/23 12:40> ROS ED Constitutional Constitutional ED: Denies chills, fever(s), subjective or sweats ENT ENT ED: Denies ear pain or rhinorrhea Cardiovascular Cardiovascular: Denies chest pain or palpitations Respiratory/Chest Respiratory/Chest: Denies cough, dyspnea or dyspnea on exertion Gastrointestinal Gastrointestinal: Reports abdominal pain and nausea; Denies constipation, diarrhea, melena or vomiting Genitourinary Genitourinary ED: Denies dysuria, hematuria or urinary frequency Musculoskeletal Musculoskeletal: Denies back pain Integumentary Denies rash Neurologic Neurologic: Denies paresthesias EXAM <Dr. Sam Florian MD - Last Filed: 12/30/23 12:40> Physical Exam Const Vital Signs: 12/30/23 06:00 12/30/23 07:55 12/30/23 09:00 Temperature 97.9 F Temperature Source Oral Pulse Rate 79 86 87 Respiratory Rate 18 16 16 Blood Pressure 141/91 H 124/72 H 136/92 H Blood Pressure Mean 107 89 106 Pulse Ox 96 97 97 Oxygen Delivery Method Room Air Nasal Cannula Nasal Cannula Oxygen Flow Rate (L/min) 4 4 Positive well nourished and well developed General Appearance ED: well developed and NAD; Negative for cyanotic, diaphoretic or pallor HEENT Reports moist mucous membranes HEENT Narrative: Head is atraumatic and normocephalic. Ears normal. Nares patent. Posterior pharynx is normal. Eyes PERRL and EOMs intact bilaterally General Eye ED: Negative for scleral icterus Neck no lymphadenopathy, supple and no JVD Chest Wall inspection of chest normal and palpation of chest normal Resp normal respiratory effort and clear to auscultation bilaterally Cardio regular rate, regular rhythm and S1 normal heart sound GI no masses; Negative for non-tender, non-distended or hepatosplenomegaly GI Narrative: There is percussion tenderness right lower quadrant in proximity of McBurney's point. Positive Rovsing sign. Patient does have rebound tenderness. Back/Spine no CVA tenderness Extremity normal to inspection Neuro oriented x3 Sensorium / Orientation: alert Psych mental status grossly normal Skin no rashes or lesions noted, no wounds and skin turgor normal General Skin Exam: Negative for pallor <Dr. Samira Johnson DO - Last Filed: 12/30/23 10:10> Physical Exam Const Vital Signs: 12/30/23 06:00 12/30/23 07:55 12/30/23 09:00 Temperature 97.9 F Temperature Source Oral Pulse Rate 79 86 87 Respiratory Rate 18 16 16 Blood Pressure 141/91 H 124/72 H 136/92 H Blood Pressure Mean 107 89 106 Pulse Ox 96 97 97 Oxygen Delivery Method Room Air Nasal Cannula Nasal Cannula Oxygen Flow Rate (L/min) 4 4 MDM <Dr. Sam Florian MD - Last Filed: 12/30/23 12:40> [facility] MDM Narrative Medical decision making narrative: Differential diagnosis would include appendicitis, right-sided diverticulitis, malignancy, doubt inflammatory bowel disorder. Evaluation included CAT scan of the abdomen pelvis IV contrast, appropriate blood work which included CBC, BMP. Patient was made NPO. Patient received IV Dilaudid for his discomfort. Lab Data Attestation: I reviewed the patient's lab results. Lab results narrative: White count is elevated at 13.5 thousand without shift. Patient does have a high H&H. This is normal for him. Electrolyte panel is unremarkable. Glucose is slightly elevated 112. Labs: Laboratory Results - last 24 hr 12/30/23 06:15 WBC 13.5 H RBC 5.86 Hgb 17.3 H Hct 52.2 MCV 89.1 MCH 29.5 MCHC 33.1 RDW Std Deviation 51.0 H RDW Coeff of Maximus 15.9 H Plt Count 265 MPV 9.4 Immature Gran % (Auto) 0.300 Neut % (Auto) 57.6 Lymph % (Auto) 29.2 [place] % (Auto) 11.3 H Eos % (Auto) 1.2 Baso % (Auto) 0.4 Absolute Neuts (auto) 7.8 H Absolute Lymphs (auto) 3.96 Nucleated RBC % 0 Differential Comment SCANNED Diff Path Review May foll Sodium 138 Potassium 4.0 Chloride 108 H Carbon Dioxide 24.0 Anion Gap 6 BUN 12 Creatinine 1.02 Estim Creat Clear Calc 74.25 Est GFR (MDRD) Af Amer 90 Est GFR (MDRD) Non-Af 75 BUN/Creatinine Ratio 11.8 Glucose 112 H Calcium 8.9 Phosphorus 2.1 L Magnesium 1.8 Radiography Diagnostic Testing: Clinical Impression(s) from Imaging Studies Abdomen/Pelvis CT 12/30/23 06:03 IMPRESSION: Acute sigmoid diverticulitis with right lower quadrant inflammation. No perforation or abscess. Small nonobstructing bilateral renal calculi. Presence of pulmonary emphysema on CT is an independent risk factor for lung cancer. Consider LDCT lung cancer screening in the future. Electronically Signed: Ana Anderson MD at 8:12 EST Reading Location ID and State: [facility] / [place] Tel , Service support , <Dr. Samira Johnson, DO - Last Filed: 12/30/23 10:10> [facility] MDM Narrative Medical decision making narrative: Differential diagnosis would include appendicitis, right-sided diverticulitis, malignancy, doubt inflammatory bowel disorder. Evaluation included CAT scan of the abdomen pelvis IV contrast, appropriate blood work which included CBC, BMP. Patient was made NPO. Patient received IV Dilaudid for his discomfort. Alex: Patient signed out to me pending CT results and repeat evaluation. Patient's CT shows acute sigmoid diverticulitis with right lower quadrant inflammation with no perforation or abscess. On repeat exam patient is still quite tender and borderline peritoneal on exam. He is resting comfortably and states that the morphine did help. He was already given Zosyn. Given how tender he is, his age and associated leukocytosis I do think he benefit from admission for IV antibiotics and further monitoring prior to discharge home. Pa tient and are more comfortable with this plan. Will reach out to hospitalist. Case discussed with hospitalist, Dr. España. Patient admitted. Lab Data Labs: Laboratory Results - last 24 hr 12/30/23 06:15 WBC 13.5 H RBC 5.86 Hgb 17.3 H Hct 52.2 MCV 89.1 MCH 29.5 MCHC 33.1 RDW Std Deviation 51.0 H RDW Coeff of Maximus 15.9 H Plt Count 265 MPV 9.4 Immature Gran % (Auto) 0.300 Neut % (Auto) 57.6 Lymph % (Auto) 29.2 Spencer % (Auto) 11.3 H Eos % (Auto) 1.2 Baso % (Auto) 0.4 Absolute Neuts (auto) 7.8 H Absolute Lymphs (auto) 3.96 Nucleated RBC % 0 Differential Comment SCANNED Diff Path Review May foll Sodium 138 Potassium 4.0 Chloride 108 H Carbon Dioxide 24.0 Anion Gap 6 BUN 12 Creatinine 1.02 Estim Creat Clear Calc 74.25 Est GFR (MDRD) Af Amer 90 Est GFR (MDRD) Non-Af 75 BUN/Creatinine Ratio 11.8 Glucose 112 H Calcium 8.9 Phosphorus 2.1 L Magnesium 1.8 Radiography Diagnostic Testing: Clinical Impression(s) from Imaging Studies Abdomen/Pelvis CT 12/30/23 06:03 IMPRESSION: Acute sigmoid diverticulitis with right lower quadrant inflammation. No perforation or abscess. Small nonobstructing bilateral renal calculi. Presence of pulmonary emphysema on CT is an independent risk factor for lung cancer. Consider LDCT lung cancer screening in the future. Electronically Signed: Ana Anderson MD at 8:12 EST , Discharge Plan Dx/Rx/DC Orders Clinical Impression: Acute diverticulitis, Abdominal pain, RLQ, Leukocytosis, Peritonitis in infectious disease Disposition Disposition: Acute Care Hospital [facility] Discharge Date/Time: 12/30/23 10:35
[2023-12-30 06:21] LABS: Absolute Lymphocyte Count 3.96 X10^3/uL (0.83-4.51); Absolute Neutrophil Count 7.8 X10^3/uL (2.0-7.7); Basophil# 0.06 X10^3/uL; Basophil% 0.4 % (0-1); Eosinophil# 0.16 X10^3/uL; Eosinophils% 1.2 % (0-5); Hematocrit 52.2 % (40-54); Hemoglobin 17.3 g/dL (13.0-16.5); Lymphocyte # 3.96 X10^3/ul (0.83-4.51); Lymphocyte % 29.2 % (19-41); Mean Corp Hgb Conc 33.1 g/dL (32-36); Mean Corpuscular Hgb 29.5 pg (27.0-32.0); Mean Corpuscular Volume 89.1 fL (80-94); Mean Platelet Vol. 9.4 fl (6.2-12.0); Monocyte# 1.53 X10^3/uL; Monocyte% 11.3 % (0-10); NRBC Flagged by Analyzer 0 % (0-5); Neutrophil # 7.79 X10^3/uL (2.7-7.7); Neutrophil % 57.6 % (47-70); POSITIVE DIFFERENTIAL YES; Platelet Count 265 K/mm3 (150-450); RBC Distribution Width CV 15.9 % (11.6-14.6); Red Blood Count 5.86 M/mm3 (4.6-6.2); White Blood Count 13.5 K/mm3 (4.4-11.0)
[2023-12-30] MEDS: Piperacil/Tazobactam 4.5 GM in 0.9% Normal Saline (100mL MB+) 100 ML IV (06:25)
[2023-12-30] MEDS: 0.9% Normal Saline (1000mL) 1,000 ML 125 ML IV (06:25)
[2023-12-30] MEDS: Ondansetron 4 MG/2 ML Vial IV (06:26)
[2023-12-30] MEDS: Morphine 4 MG/ML Syringe IV (06:26)
[2023-12-30 06:34] LABS: Anion Gap 6 (5-15); BUN 12 mg/dL (7-18); BUN/Creat Ratio 11.8 RATIO (10-20); Calcium,Total 8.9 mg/dL (8.5-10.1); Chloride 108 mmol/L (98-107); Creatinine, Serum 1.02 mg/dL (0.70-1.30); Differential Indicated SCAN CRITERIA MET; EST Glomerular Filtration Rate 75 mL/min (>60); Est Glom Filt Rate - Afr Amer 90 mL/min (>60); Estimated Creatinine Clearance 74.25 ml/min; Glucose 112 mg/dL (74-106); Sodium Level 138 mmol/L (136-145)
[2023-12-30 07:01] LABS: Differential Comment SCANNED
--- NOTE | 2023-12-30 09:26 | PCM.HP.STD ---
HPI - General General Date of Admission: 12/30/23 Date of Service: 12/30/23 Chief Complaint: RLQ abdominal pain for last 2 days since Sunday evening. HPI Narrative LAILA HULL, is a 78 M came to ED with worsening RLQ abdominal pain for last 2 days since Sunday evening. Patient states it is getting worse, intermittent with cramps about 7-8/10 in intensity associated with mild nausea but no vomiting. Subjective chills but no fever. Patient usually gets loose bowel movement because of pulmonary fibrosis medication, nintedanib. He states his bowel was soft without mucus or blood. In the ED, CT abdomen was done which shows sigmoid diverticulitis in right lower quadrant. Patient is admitted for worsening abdominal pain not able to tolerate oral antibiotic because of nausea Ex-smoker, already quit. Follows Dr. Oneil Ambrocio for lung fibrosis. [facility] Medical History sebaceous cyst back Family hx of colon cancer COPD (chronic obstructive pulmonary disease) Back problem Home Medications ?Medication ?Instructions ?Recorded ?Last Taken ?Type fluticasone fur. 100 mcg-umeclid 1 puff inhalation DAILY 10/06/18 10/05/18 History 62.5 mcg-vilant 25 mcg inhalat.powder rosuvastatin 10 mg tablet 10 mg PO DAILY 10/06/18 Unknown History naproxen 500 mg tablet 500 mg PO BID PRN #20 tabs 10/13/18 Unknown Rx azelastine 137 mcg (0.1 %) nasal 1 spray intranasal BID 12/30/23 Unknown History spray nintedanib 150 mg capsule (Ofev) 150 mg PO BID 12/30/23 Unknown History vitamin D3 25 mcg (1,000 unit)-vit tab PO 12/30/23 Unknown History K2 90 mcg disintegrating tablet (D3 Plus K2 Dots) Allergy/AdvReac Type Severity Reaction Status Date / Time No Known Allergies Allergy Verified 12/30/23 05:56 Family History Mother Breast cancer Daughter Colon cancer Surgical History history excision sebaceous cyst right lower ba (~09/22/19) Hx of colonoscopy Hx of squamous cell carcinoma excision History of basal cell carcinoma (BCC) excision Social History Smoking Status: Light Smoker (<10/day) second hand exposure: No alcohol intake: current alcohol intake frequency: holidays/special occasions only substance use type: does not use caffeine: Yes what type of physical activity do you participate in: none frequency: does not exercise ROS ROS Narrative Constitutional: Reports fatigue and weakness. No fever. HEENT: Reports systems reviewed and no addt'l complaints, except as documented Respiratory/Chest: Chronic lung fibrosis. Mild dyspnea on exertion, chronic. No acute cough or URI symptoms. CVS: No chest pain. Denies history of chronic heart disease. Gastrointestinal: Nausea. Denies coffee ground emesis, hematemesis or vomiting or melena. Rest as described in HPI Genitourinary: Denies burning urination or new urinary tract symptoms Musculoskeletal: Denies acute joint pain or limited range of motion. No acute injury Neurologic: Denies seizure-like symptoms. skin: No ulcer. No rash Endocrinology: Reports systems reviewed and no addt'l complaints, except as documented Hematologic/Lymphatic: Reports systems reviewed and no addt'l complaints, except as documented Rest 14 ROS are negative except as mentioned in HPI Vital Signs Vital Signs Vital Signs: 12/30/23 06:00 12/30/23 07:55 12/30/23 09:00 Temperature 97.9 F Temperature Source Oral Pulse Rate 79 86 87 Respiratory Rate 18 16 16 Blood Pressure 141/91 H 124/72 H 136/92 H Blood Pressure Mean 107 89 106 Pulse Ox 96 97 97 Oxygen Delivery Method Room Air Nasal Cannula Nasal Cannula Oxygen Flow Rate (L/min) 4 4 Weight Weight: 244 lb 4.355 oz Body Mass Index (BMI) 33.1 Physical Exam Narrative General: Alert, Oriented x3, Cooperative HEENT: Atraumatic, PERRLA, EOMI, Normocephalic Oral: Oral mucosa dry. No Gingival or Mucosal Lesions/ Ulcerations Neck: Supple, No JVD, Negative Carotid Bruits Chest wall/Lungs: Air entry diminished in bilateral lung bases. Bilateral inspiratory rales, right more than left. No hypoxia or tachypnea. Cardiovascular: Regular rate, Regular Rhythm, Normal S1, Normal S2, systolic murmur LLSB. Abdomen: Tenderness present in right lower quadrant. No rebound tenderness. Mild voluntary guarding. No rigidity. Bowel Sounds Present, Soft, Non-Distended : No dysuria. No renal angle tenderness. No suprapubic tenderness. Extremities: No edema, Capillary Refill Less than 3 Seconds Skin: No rashes, No breakdown Musculoskeletal: No Tenderness to Palpation of Joints or Extremities. ROM full and adequate. Neurological: Cranial nerves II-XII grossly intact, DTR 2+/4. No acute focal neurological deficit. Psych/Mental Status: Flat affect. Results Lab / Micro Data 12/30/23 06:15 12/30/23 06:15 Labs: Laboratory Results - last 24 hr 12/30/23 06:15: WBC 13.5 H, RBC 5.86, Hgb 17.3 H, Hct 52.2, MCV 89.1, MCH 29.5, MCHC 33.1, RDW Std Deviation 51.0 H, RDW Coeff of Maximus 15.9 H, Plt Count 265, MPV 9.4, Immature Gran % (Auto) 0.300, Neut % (Auto) 57.6, Lymph % (Auto) 29.2, [place] % (Auto) 11.3 H, Eos % (Auto) 1.2, Baso % (Auto) 0.4, Absolute Neuts (auto) 7.8 H, Absolute Lymphs (auto) 3.96, Nucleated RBC % 0, Differential Comment SCANNED, Diff Path Review June, Sodium 138, Potassium 4.0, Chloride 108 H, Carbon Dioxide 24.0, Anion Gap 6, BUN 12, Creatinine 1.02, Estim Creat Clear Calc 74.25, Est GFR (MDRD) Af Amer 90, Est GFR (MDRD) Non-Af 75, BUN/Creatinine Ratio 11.8, Glucose 112 H, Calcium 8.9 Imaging Radiology Impression Abdomen/Pelvis CT 12/30/23 06:03 IMPRESSION: Acute sigmoid diverticulitis with right lower quadrant inflammation. No perforation or abscess. Small nonobstructing bilateral renal calculi. Presence of pulmonary emphysema on CT is an independent risk factor for lung cancer. Consider LDCT lung cancer screening in the future. Electronically Signed: Ana Anderson MD at 8:12 EST Reading Location ID and State: [facility] / [place] Tel , Service support , Assessment & Plan Assessment/Plan (1) Acute diverticulitis: PLAN: Plan This is a 78-year-old gentleman being admitted for RLQ abdominal pain nausea and found to have sigmoid diverticulitis on imaging 1. Acute sigmoid diverticulitis: Patient is being admitted on [facility] floor. Mild leukocytosis, mainly polymorphs. CT abdomen/pelvis individually reviewed and showed inflammation on the sigmoid wall and pericolonic infiltration consistent with sigmoid diverticulitis. No abscess or perforation. Patient had 1 dose of IV Zosyn in ED and started on IV Cipro and Flagyl. Stool for enteric pathogen, WBC and occult blood. Does not meet criteria for C. difficile testing as he did not have more than 3 liquid BMs per day or recent antibiotic exposure. Patient is dehydrated with hematocrit 52%. IV fluid Ringer lactate ordered. Monitor clinically for abdominal pain 2. Chronic lung fibrosis: Patient follows cash processing specialist Dr. Oneil Ambrocio. He was told by cash processing specialist that he is not candidate for ventilator and I agree. Last 2D echo in November 2023 reported normal RV size and systolic function, EF 55%, stage I diastolic dysfunction. 1-2+ TR, PASP 50 mmHg. Continue nintedanib 3. COPD: DuoNeb as needed. Home medication reconciliation done. Patient on Trelegy Ellipta 1 puff daily, continued. DuoNeb as needed. Patient is ex-smoker. 4. DVT, high risk: Lovenox 40 mg subcu daily. Discontinue if platelet count drops less than 50,000 or hemoglobin less than 8 g% Living will/advanced directive/end of life care: Patient does have living will or advanced directive. His is power of senior attorney for health. After discussion of benefits/risks procedures involved with full code, DNR CC arrest and DNR CC, the patient opted for DNR CC arrest with no intubation, prudent in view of chronic lung fibrosis. Patient doesn't want artificial life support including intubation, tube feed, ventilator and/chest compression, central venous catheter, vasopressor and DC shock if needed Total time spent in [id number] encounter in discussion of advanced directive 17 minutes. Laboratory Results 12/30/23 06:15: WBC 13.5 H, RBC 5.86, Hgb 17.3 H, Hct 52.2, MCV 89.1, MCH 29.5, MCHC 33.1, RDW Std Deviation 51.0 H, RDW Coeff of Maximus 15.9 H, Plt Count 265, MPV 9.4, Immature Gran % (Auto) 0.300, Neut % (Auto) 57.6, Lymph % (Auto) 29.2, [place] % (Auto) 11.3 H, Eos % (Auto) 1.2, Baso % (Auto) 0.4, Absolute Neuts (auto) 7.8 H, Absolute Lymphs (auto) 3.96, Nucleated RBC % 0, Differential Comment SCANNED, Diff Path Review June, Sodium 138, Potassium 4.0, Chloride 108 H, Carbon Dioxide 24.0, Anion Gap 6, BUN 12, Creatinine 1.02, Estim Creat Clear Calc 74.25, Est GFR (MDRD) Af Amer 90, Est GFR (MDRD) Non-Af 75, BUN/Creatinine Ratio 11.8, Glucose 112 H, Calcium 8.9 Charges/Coding Visit Charges Inpatient E&M: 09030 Init Hosp L3 Procedures Hospitalists Procedures: 15966 Advncd Care Plan 30 Min
[2023-12-30 09:54] LABS: Magnesium 1.8 mg/dL (1.6-2.6); Phosphorus 2.1 mg/dL (2.5-4.9)
[2023-12-30] MEDS: Lactated Ringers 1,000 ML 100 ML IV (12:52)
[2023-12-30] MEDS: Ciprofloxacin 400 MG/200 ML BAG 200 MG IV ×2 (12:56→20:31)
[2023-12-30] MEDS: Senna/Docusate Sodium 1 Tablet 2 TABLET PO ×2 (12:59→20:33)
[2023-12-30] MEDS: oxyCODONE 5 MG Tablet PO ×2 (13:13→17:41)
[2023-12-30] MEDS: metroNIDAZOLE 500 MG/100 ML BAG 100 MG IV ×2 (14:24→20:31)
[2023-12-30] MEDS: Budesonide Respules 0.5 MG/2 ML AMPUL.NEB. INHALATION (20:15)
[2023-12-30] MEDS: Ipratropium/Albuterol Sulfate 3 ML AMPUL.NEB INHALATION (20:15)
[2023-12-30] MEDS: Azelastine HCl NASAL.SRY 1 SPRAY NASAL (20:32)
[2023-12-31 03:30] VITALS: BP 121/64; PULSE 62; RESP 16; TEMP 36.7; O2SAT 94
[2023-12-31] MEDS: Lactated Ringers 1,000 ML 100 ML IV (03:33)
[2023-12-31] MEDS: metroNIDAZOLE 500 MG/100 ML BAG 100 MG IV (05:02)
[2023-12-31] MEDS: Budesonide Respules 0.5 MG/2 ML AMPUL.NEB. INHALATION (06:57)
[2023-12-31] MEDS: Ipratropium/Albuterol Sulfate 3 ML AMPUL.NEB INHALATION ×2 (06:57→13:04)
[2023-12-31 06:59] VITALS: PULSE 65; RESP 14; O2SAT 95
[2023-12-31 07:13] LABS: Absolute Lymphocyte Count 2.68 X10^3/uL (0.83-4.51); Absolute Neutrophil Count 4.9 X10^3/uL (2.0-7.7); Basophil# 0.04 X10^3/uL; Basophil% 0.5 % (0-1); Eosinophil# 0.19 X10^3/uL; Eosinophils% 2.1 % (0-5); Hematocrit 46.7 % (40-54); Hemoglobin 14.9 g/dL (13.0-16.5); Lymphocyte # 2.68 X10^3/ul (0.83-4.51); Lymphocyte % 30.2 % (19-41); Mean Corp Hgb Conc 31.9 g/dL (32-36); Mean Corpuscular Hgb 28.9 pg (27.0-32.0); Mean Corpuscular Volume 90.5 fL (80-94); Mean Platelet Vol. 9.5 fl (6.2-12.0); Monocyte# 1.07 X10^3/uL; Monocyte% 12.1 % (0-10); NRBC Flagged by Analyzer 0 % (0-5); Neutrophil # 4.86 X10^3/uL (2.7-7.7); Neutrophil % 54.9 % (47-70); Platelet Count 245 K/mm3 (150-450); RBC Distribution Width CV 15.3 % (11.6-14.6); Red Blood Count 5.16 M/mm3 (4.6-6.2); White Blood Count 8.9 K/mm3 (4.4-11.0)
[2023-12-31 07:47] LABS: Anion Gap 6 (5-15); BUN 7 mg/dL (7-18); Calcium,Total 8.2 mg/dL (8.5-10.1); Chloride 109 mmol/L (98-107); Creatinine, Serum 0.88 mg/dL (0.70-1.30); EST Glomerular Filtration Rate 89 mL/min (>60); Est Glom Filt Rate - Afr Amer 108 mL/min (>60); Estimated Creatinine Clearance 86.06 ml/min; Glucose 101 mg/dL (74-106); Potassium 3.7 mmol/L (3.5-5.1); Sodium Level 138 mmol/L (136-145)
[2023-12-31 10:24] VITALS: BP 118/72; PULSE 68; RESP 18; TEMP 36.5; O2SAT 93
[2023-12-31] MEDS: Ciprofloxacin 400 MG/200 ML BAG 200 MG IV (10:36)
[2023-12-31] MEDS: Azelastine HCl NASAL.SRY 1 SPRAY NASAL (10:39)
[2023-12-31] MEDS: Senna/Docusate Sodium 1 Tablet 2 TABLET PO (10:41)
--- NOTE | 2023-12-31 12:51 | CASEMGMT ---
CYNTHIA MCKEE Assessment Face to Face with patient for initial transition planning/care coordination assessment. CYNTHIA MCKEE introduced self and role at [facility], pt voices understanding. Pt is A&Ox4 and is resting comfortably in bed and is calm. Care providers, pharmacy, and demographics verified. Admitting dx: Sigmoid Diverticulitis LACE Strata: 1 PCP: Nickie Patterson Specialists: Cristóbal (Pulm), Pulmonary Fibrosis specialist out of [facility] Preferred Pharmacy: [facility] Insurance: [employer] [facility] Prescription Benefit: Yes LNOK: Consuelo Juan () Living Arrangements: Pt lives with his in a single story home with a basement and 9 steps to enter with handrails ADLs/IADLs: Reports ind Transportation: Self, . Denies concerns DME: Home oxygen through [employer]. Verified pt current Rx states 5L continuous and 5L HS through PAP. Pt states that he has a CPAP, concentrator, portable tanks, pox, nebulizer, and inhaler. Pt states that his will bring in his portable tank at time of DC. Pt also has a shower chair. HHC/SNF: Denies history or needs Pt?s goal: Home Plan: Home with pt once medically ready. 6-Click is 20. Therapy is ordered and pending. At this time, the pt denies the need for HH, OP Tx, or CCN. Pt states that he feels safe returning home with his once he is medically ready. CM to follow for increased oxygen needs. Dilip Orellana RN, CM
[2023-12-31 13:05] VITALS: PULSE 74; RESP 20
--- NOTE | 2023-12-31 13:24 | PN_ITS ---
Subjective Subjective Patient seen and examined. He feels much better. Abdominal pain has improved. Review of systems otherwise negative. He has remained hemodynamically stable. Objective Data Objective Data Vital Signs: Vital Signs Temp Pulse Resp BP Pulse Ox O2 Del Method O2 Flow Rate 97.7 F L 74 20 H 118/72 93 Nasal Cannula 4 12/31/23 10:24 12/31/23 13:05 12/31/23 13:05 12/31/23 10:24 12/31/23 10:24 12/31/23 10:46 12/31/23 10:46 Oxygen Flow Rate (L/min) 4 Oxygen Delivery Method Nasal Cannula Weight: 244 lb 4.355 oz Body Mass Index (BMI) 33.1 Intake & Output: Intake and Output for Last 24 Hours 12/29/23 12/30/23 12/31/23 23:59 23:59 23:59 Intake Total 1714.58 / 1714.58 1100 / 1100 Output Total 450 / 450 Balance 1714.58 / 1564.58 650 / 650 Lab / Micro Data 12/31/23 06:39 12/31/23 06:39 Labs: Laboratory Results - last 24 hr 12/31/23 06:39: WBC 8.9, RBC 5.16, Hgb 14.9, Hct 46.7, MCV 90.5, MCH 28.9, MCHC 31.9 L, RDW Std Deviation 51.0 H, RDW Coeff of Maximus 15.3 H, Plt Count 245, MPV 9.5, Immature Gran % (Auto) 0.200, Neut % (Auto) 54.9, Lymph % (Auto) 30.2, [place] % (Auto) 12.1 H, Eos % (Auto) 2.1, Baso % (Auto) 0.5, Absolute Neuts (auto) 4.9, Absolute Lymphs (auto) 2.68, Nucleated RBC % 0, Sodium 138, Potassium 3.7, C hloride 109 H, Carbon Dioxide 24.0, Anion Gap 6, BUN 7, Creatinine 0.88, Estim Creat Clear Calc 86.06, Est GFR (MDRD) Af Amer 108, Est GFR (MDRD) Non-Af 89, B UN/Creatinine Ratio 8.0 L, Glucose 101, Calcium 8.2 L Physical Exam Const alert, oriented x3, no apparent distress and well nourished General Appearance: cooperative and well developed HEENT normocephalic, head/scalp atraumatic and moist oral mucous membranes Eyes PERRL and EOMs intact bilaterally Neck no lymphadenopathy and supple Lymph Lymphatic: no lymphadenopathy noted and no lymphedema noted Resp Resp Narrative: Diminished breath sounds bibasilarly. Few crackles. On 4 L of oxygen by nasal cannula which is his baseline. Cardio regular rate, regular rhythm, S1 normal heart sound, S2 normal heart sound and no murmurs GI normal to inspection, nondistended, normoactive bowel sounds, soft to palpation, non-tender and non-distended Extremity normal capillary refill, no clubbing, cyanosis or edema and no calf tenderness General Extremity: no tenderness to palpation of joints or extremities Skin General Skin Exam: no breakdown Neuro CN's II-XII intact bilaterally, no focal motor deficits, no sensory deficits noted and deep tendon reflexes 2+ bilaterally Motor Exam: strength 5/5 throughout and general weakness Psych thought process normal and cooperative Appearance: appropriate Assessment & Plan Assessment/Plan (1) Acute diverticulitis: PLAN: Plan #Acute sigmoid diverticulitis * Abdominal pain has improved. * CT of the abdomen and pelvis showed inflammation in the sigmoid wall and pericolonic infiltration consistent with sigmoid colitis with no evidence of abscess or perforation. * On IV ciprofloxacin and metronidazole. * Continue gentle hydration with IV fluids. As abdominal pain is improved we will place on a diet and advance as tolerated. #Chronic respiratory failure due to pulmonary fibrosis * Follows with Dr. Ambrocio. On nintedanib * Titrate oxygen to maintain saturation above 90%. Breathing treatments bronchodilators. #COPD: Not in exacerbation. On Trelegy and Ellipta. Breathing treatment bronchodilators. #DVT prophylaxis: On Lovenox 40 mg daily. * Charges/Coding Visit Charges Inpatient E&M: 01712 Subs Hosp L2
[2023-12-31 15:14] VITALS: BP 116/71; PULSE 80; RESP 16; TEMP 36.9; O2SAT 93
--- NOTE | 2023-12-31 16:10 | DCINST_ITS ---
Discharge Instructions Diet Discharge Diet: Low fat / Low cholesterol DC O2, CPAP, BIPAP needs Additional Home O2 Discharge instructions: No Dressing / Incision Discharge Activity: Return to Normal Activity May resume sexual activity in: No Restrictions Weight Bearing Status: Weight bearing as tolerated Dressing / Incision Call your doctor if your incision/area has: Continuous Slow Oozing Call your doctor if you observe: Fever of 101 or Higher, Shortness of breath, Swelling in the ankles and - (uncontrolled abdominal pain) Follow Up Care Test Results: Test results from this visit will be discussed in further detail at your follow- up appointment, if applicable. Discharge Plan Admission Admit Date/Time: 12/30/23 09:22 Primary Reason for Your Visit: acute sigmoid diverticulitis Attending Provider: Radha Forde Primary Care Provider: Nickie Patterson Consulting Providers: Aric España Instructions Patient Instructions: Diverticulitis Dc Discharge Orders/Prescriptions Prescriptions: New ciprofloxacin HCl 500 mg tablet 500 mg PO Q12H Qty: 10 0RF metronidazole 500 mg tablet 500 mg PO Q8H Qty: 15 0RF Continued rosuvastatin 10 MG tablet 10 mg PO DAILY ybqlciqqlny-ulgukffyr-esvuvupv 1 EACH blister with device 1 puff inhalation DAILY Patient Comments: INHALE 1 PUFF BY MOUTH ONCE DAILY azelastine 137 mcg (0.1 %) spray,non-aerosol 1 spray INTRANASAL BID D3 Plus K2 Dots 25 mcg (1,000 unit)-90 mcg tablet,disintegrating 1 tab PO DAILY Ofev 150 mg capsule 150 mg PO BID Discontinued naproxen 500 MG tablet 500 mg PO BID PRN Qty: 20 0RF Referrals / Follow Up: Nickie Pattersno DO [Primary Care Provider] - Within 1 Week Disposition Disposition (needs filled in before D/C Order can be placed): Home, Self Care
--- NOTE | 2023-12-31 16:11 | DS.PCM_ITS ---
Providers Date of Admission: 12/30/23 Date of Discharge: 12/31/23 Primary Care Physician: Dr. Nickie Patterson DO Reason For Visit: SIGMOID DIVERTICULITIS Diagnosis Discharge Diagnosis (1) Acute diverticulitis: Status: Acute Code(s): K57.92 - Diverticulitis of intestine, part unspecified, without perforation or abscess without bleeding Plan #Acute sigmoid diverticulitis * Abdominal pain has improved. * CT of the abdomen and pelvis showed inflammation in the sigmoid wall and pericolonic infiltration consistent with sigmoid colitis with no evidence of abscess or perforation. * On IV ciprofloxacin and metronidazole. * Continue gentle hydration with IV fluids. As abdominal pain is improved we will place on a diet and advance as tolerated. #Chronic respiratory failure due to pulmonary fibrosis * Follows with Dr. Ambrocio. On nintedanib * Titrate oxygen to maintain saturation above 90%. Breathing treatments bronchodilators. #COPD: Not in exacerbation. On Trelegy and Ellipta. Breathing treatment bronchodilators. #DVT prophylaxis: On Lovenox 40 mg daily. * Medications at Discharge Home Medications fluticasone fur. 100 mcg-umeclid 62.5 mcg-vilant 25 mcg inhalat.powder 1 puff inhalation DAILY 10/06/18 rosuvastatin 10 mg tablet 10 mg PO DAILY 10/06/18 azelastine 137 mcg (0.1 %) nasal spray 1 spray intranasal BID 12/30/23 nintedanib 150 mg capsule (Ofev) 150 mg PO BID 12/30/23 vitamin D3 25 mcg (1,000 unit)-vit K2 90 mcg disintegrating tablet (D3 Plus K2 Dots) 1 tab PO DAILY vitamin 12/30/23 ciprofloxacin HCl 500 mg tablet 500 mg PO Q12H #10 tabs 12/31/23 metronidazole 500 mg tablet 500 mg PO Q8H #15 tabs 12/31/23 Hospital Course Operations None Procedures None Summary of Care Provided Minutes Spent on Discharge: 55 Hospital Course: Patient is an 78-year-old male with past medical history as outlined who was admitted to the ED on 12/30/2023 with a complaint of right lower quadrant abdominal pain for at least 2 days prior to admission. He had a steady intermittent cramps and mild nausea but no vomiting. He had subjective chills but no fevers. He said he usually had loose bowel movements due to his pulmonary fibrosis medication,nintedanib. CT of the abdomen done showed sigmoid diverticulitis. He was admitted and managed for acute diverticulitis. He was started on IV Zosyn in the ED and transition to IV ciprofloxacin and metronidazole on admission to the floor. His white cell count was mildly elevated at 13. His abdominal pain resolved and the white cell count trended downwards to normal. He was able to tolerate a diet and did very well. This hospitalist will plan on keeping patient for 1 more day but patient requested to be discharged as he felt much better on 12/31/2023. In light of absence of fever or chills and with abdominal pain having virtually resolved, patient was discharged on p.o. ciprofloxacin and p.o. metronidazole for a 5 day course on 12/31/2023. He is follow-up with his primary care doctor within 1 to 2 weeks. Patient seen and examined prior to discharge. He had no active complaints and had an uneventful night. Review of systems otherwise negative. Labs and vitals reviewed. Home medication reviewed and reconciled. Physical Exam Const alert, oriented x3, no apparent distress and well nourished General Appearance: cooperative, comfortable, well kempt and well developed Orientation / Consciousness: awake HEENT normocephalic, head/scalp atraumatic, hearing grossly normal bilaterally and moist oral mucous membranes Mouth: oral and palatal mucosa normal Eyes PERRL and EOMs intact bilaterally Neck no lymphadenopathy and supple Lymph Lymphatic: no lymphadenopathy noted and no lymphedema noted Resp normal respiratory effort and normal air movement Resp Narrative: Diminished breath sounds bibasilarly. Few crackles. On 4 L of oxygen by nasal cannula which is his baseline. Cardio regular rate, regular rhythm, S1 normal heart sound, S2 normal heart sound and no murmurs GI normal to inspection, nondistended, normoactive bowel sounds, soft to palpation, non-tender and non-distended Extremity normal to inspection, full ROM, normal capillary refill, no clubbing, cyanosis or edema and no calf tenderness General Extremity: no tenderness to palpation of joints or extremities Skin General Skin Exam: no breakdown Neuro oriented x3, CN's II-XII intact bilaterally, moves all extremities, no focal motor deficits, no sensory deficits noted and deep tendon reflexes 2+ bilaterally Sensorium / Orientation: awake and alert Motor Exam: strength 5/5 throughout and general weakness Psych thought process normal and cooperative Appearance: appropriate Weight / BMI Weight Weight: 244 lb 4.355 oz Body Mass Index (BMI) 33.1 ABG / Lab / Microbiology Data 12/31/23 06:39 12/31/23 06:39 Laboratory: Laboratory Results - last 24 hr 12/31/23 06:39: WBC 8.9, RBC 5.16, Hgb 14.9, Hct 46.7, MCV 90.5, MCH 28.9, MCHC 31.9 L, RDW Std Deviation 51.0 H, RDW Coeff of Maximus 15.3 H, Plt Count 245, MPV 9.5, Immature Gran % (Auto) 0.200, Neut % (Auto) 54.9, Lymph % (Auto) 30.2, Andrew % (Auto) 12.1 H, Eos % (Auto) 2.1, Baso % (Auto) 0.5, Absolute Neuts (auto) 4.9, Absolute Lymphs (auto) 2.68, Nucleated RBC % 0, Sodium 138, Potassium 3.7, C hloride 109 H, Carbon Dioxide 24.0, Anion Gap 6, BUN 7, Creatinine 0.88, Estim Creat Clear Calc 86.06, Est GFR (MDRD) Af Amer 108, Est GFR (MDRD) Non-Af 89, B UN/Creatinine Ratio 8.0 L, Glucose 101, Calcium 8.2 L D/C Instructions Discharge Diet: Low fat / Low cholesterol Discharge Activity: Return to Normal Activity May resume sexual activity in: No Restrictions Weight Bearing Status: Weight bearing as tolerated Call your doctor if your incision/area has: Continuous Slow Oozing Call your doctor if you observe: Fever of 101 or Higher, Shortness of breath, Swelling in the ankles and - (uncontrolled abdominal pain) DC O2, CPAP, BIPAP Needs Additional Home O2 Discharge instructions: No DC home with Oxygen: Yes Home O2 MD Review: I have reviewed the oxygen testing, and the patient qualifies for home oxygen equipment and portability. The patient is mobile in the home and the community. Meaningful Use Info Meaningful Use Meaningful Use Diagnoses (Choose all that apply): None applicable Ischemic Stroke Statin Dosing Therapy Reference: STATIN DOSE THERAPY REFERENCE: * Patients > 75 years receive moderate or high dose statin therapy. * Patients 75 years or YOUNGER should receive HIGH intensity statin dose unless contraindicated. You will be required to document reason for non-treatment if statin daily dose does not meet guidelines. HIGH DOSE STATIN THERAPY DAILY Atorvastatin > than or = to 40 mg Rosuvastatin > than or = to 20 mg Amlodipine + Atorvastatin > than or = to 2.5/40 mg Ezetimibe + Simvastatin 10/80 mg Simvastatin 80mg Discharge Plan Admission Admit Date/Time: 12/30/23 09:22 Primary Reason for Your Visit: acute sigmoid diverticulitis Attending Provider: Radha Forde Primary Care Provider: Nickie Patterson Consulting Providers: Aric España Instructions Patient Instructions: Diverticulitis Dc Discharge Orders/Prescriptions Prescriptions: New ciprofloxacin HCl 500 mg tablet 500 mg PO Q12H Qty: 10 0RF metronidazole 500 mg tablet 500 mg PO Q8H Qty: 15 0RF Continued rosuvastatin 10 MG tablet 10 mg PO DAILY ktdkajyczuc-sotzcchje-akaqwiou 1 EACH blister with device 1 puff inhalation DAILY Patient Comments: INHALE 1 PUFF BY MOUTH ONCE DAILY azelastine 137 mcg (0.1 %) spray,non-aerosol 1 spray INTRANASAL BID D3 Plus K2 Dots 25 mcg (1,000 unit)-90 mcg tablet,disintegrating 1 tab PO DAILY Ofev 150 mg capsule 150 mg PO BID Discontinued naproxen 500 MG tablet 500 mg PO BID PRN Qty: 20 0RF Referrals / Follow Up: Nickie Patterson DO [Primary Care Provider] - Within 1 Week Disposition Disposition (needs filled in before D/C Order can be placed): Home, Self Care Charges/Coding Visit Charges Inpatient E&M: 29019 Disch Hosp >30min
[2023-12-31 18:00] VITALS: BP 128/70; PULSE 85; RESP 18; TEMP 36.6; O2SAT 95
[2024-01-01 08:56] LABS: Pathologist Review Reviewed
== END 2023-12-31 18:11 | disposition home or self-care (01) | DRG 391 ==
LOC: ED 07:06 → MS3 10:10
PROVIDERS: Admitting Provider Internal Medicine; Emergency Provider Emergency Medicine; PCP Internal Medicine; Visit Provider Student in an Organized Health Care Education/Training Program
DX: K57.32 Diverticulitis of large intestine without perforation or abscess without bleeding (principal); J96.10 Chronic respiratory failure, unspecified whether with hypoxia or hypercapnia; K65.0 Generalized (acute) peritonitis; J84.10 Pulmonary fibrosis, unspecified; J44.9 Chronic obstructive pulmonary disease, unspecified; Z66 Do not resuscitate; F17.210 Nicotine dependence, cigarettes, uncomplicated; Z79.51 Long term (current) use of inhaled steroids; Z79.899 Other long term (current) drug therapy
CPT/HCPCS: 36415; 74177; 80048; 83735; 84100; 85025; 94640; 94668; 96361; 96365; 96366; 96367; 96368; 96375; 97162; 99221; 99283; 99406; Q9967; A4216; G0378; J0744; J2405

== ENCOUNTER 2024-11-03 09:18 | Outpatient (RCR) | payer MEDICARE, SELFPAY | END 2024-11-04 23:59 | LOC: NS 09:18 | PROVIDERS: PCP Internal Medicine; Referring Provider Internal Medicine; Visit Provider Internal Medicine | DX: Z71.3 Dietary counseling and surveillance (principal); E11.9 Type 2 diabetes mellitus without complications; E66.811 Obesity, class 1; Z99.81 Dependence on supplemental oxygen; Z68.32 Body mass index [BMI] 32.0-32.9, adult | CPT/HCPCS: 97802 ==

== ENCOUNTER 2024-11-14 03:27 | Emergency (ER) | payer MEDICARE, SELFPAY ==
[2024-11-14 03:28] VITALS: PULSE 81; RESP 18; TEMP 36.9; O2SAT 93
[2024-11-14 03:30] VITALS: BP 117/83
--- NOTE | 2024-11-14 04:04 | CT_ITS ---
PROCEDURE: ABDOMEN/PELVIS WITHOUT CONT 11/14/2024 REASON FOR EXAM: RIGHT FLANK PAIN TECHNIQUE: Procedure Code: CTABDPEL Modality: CT Procedure: ABDOMEN/PELVIS WITHOUT CONT Noncontrast technique limits evaluation of the abdominal and pelvic viscera. Coronal and Sagittal reconstruction series were provided. One or more dose reduction techniques were used (e.g., Automated exposure control, adjustment of the mA and/or kV according to patient size, use of iterative reconstruction technique). RADIATION DOSE SUMMARY: CTDlvol: 18.36 mGy DLP: 981 mGycm COMPARISON: None. FINDINGS: Emphysema. Bilateral basilar atelectatic pulmonary changes. Diffuse spondylosis. Prostatomegaly. Scattered prostatic calcifications. Atherosclerotic, tortuous ectatic aorta and iliac arteries. Left renal simple cyst measuring 1.2 cm. Bilateral nonobstructing renal stones with the largest measuring 7 mm. Extravesical ureterocele is noted at the level of the right ureterovesical junction measuring 2.7 x 2.5 cm. Obstructing stone of the right ureter measuring 4.2 mm is noted in the most distal aspect of the right ureter just proximal to the right ureterocele. Mild diffuse thickening of the bladder suggestive of cystitis. Fat containing umbilical hernia without incarceration. Normal unenhanced liver. Normal gallbladder and extrahepatic biliary system. Normal unenhanced spleen. Normal pancreas. Normal bilateral adrenal glands. Normal size of the right kidney. There is no right renal mass. Normal size of the left kidney. There is no left renal mass. There is no left hydronephrosis. Normal visualized left ureter. Normal visualized stomach. Normal small intestine. Normal colon. The appendix is visualized and appears normal. There is no demonstrated peritoneal fluid. Normal inferior vena cava. Normal retroperitoneum. There is no pelvic mass lesion or lymphadenopathy. There is no pelvic fluid. CT/Abdomen/Pelvis without Cont IMPRESSION: Emphysema. Bilateral basilar atelectatic pulmonary changes. Diffuse spondylosis. Prostatomegaly. Scattered prostatic calcifications. Atherosclerotic, tortuous ectatic aorta and iliac arteries. Left renal simple cyst measuring 1.2 cm. Bilateral nonobstructing renal stones with the largest measuring 7 mm. Extravesical ureterocele is noted at the level of the right ureterovesical junc tion measuring 2.7 x 2.5 cm. Obstructing stone of the right ureter measuring 4.2 mm is noted in the most dis scott aspect of the right ureter just proximal to the right ureterocele. Mild diffuse thickening of the bladder suggestive of cystitis. Fat containing umbilical hernia without incarceration. Reading Location: [facility]
[2024-11-14 04:12] LABS: Hematocrit 50.4 % (40-54); Hemoglobin 16.7 g/dL (13.0-16.5); Immature Granulocytes Count 0.020 X10^3/uL (0.0-0.0); Mean Corp Hgb Conc 33.1 g/dL (32-36); Mean Corpuscular Volume 88.6 fL (80-94); Mean Platelet Vol. 9.6 fl (6.2-12.0); NRBC Flagged by Analyzer 0 % (0-5); Platelet Count 256 K/mm3 (150-450); RBC Distribution Width CV 14.7 % (11.6-14.6); RBC Distribution Width SD 47.6 fl (35.1-43.9); Red Blood Count 5.69 M/mm3 (4.6-6.2); White Blood Count 9.1 K/mm3 (4.4-11.0)
[2024-11-14] MEDS: 0.9% Normal Saline (500mL Bag) 500 ML 999 ML IV (04:22)
[2024-11-14 05:14] LABS: Mucous, Urine 0 SEEN /hpf (<or=2+); Squamous Epithelial Cells - UA 0 SEEN /hpf (0-5)
[2024-11-14 05:17] LABS: Color, Urine Yellow (Yellow); Glucose, Dipstick Normal (Normal); Ketone-Dipstick Negative (Negative); Leukocyte Esterase-Dipstick Negative /ul (Negative); Nitrite-Dipstick Negative (Negative); Occult Blood-Urine 250 /ul (Negative); Protein-Dipstick 30 mg/dl (Negative); Specific Gravity, Urine 1.020 (1.002-1.030); Urine Bilirubin Dipstick Negative (Negative)
[2024-11-14 05:26] LABS: Red Blood Cells-Urine 25-50 SEEN /hpf (0-5)
[2024-11-14 05:30] VITALS: RESP 16
[2024-11-14 05:36] LABS: Anion Gap 10 (5-15); BUN 18 mg/dL (4-19); BUN/Creat Ratio 17.5 RATIO (10-20); Calcium,Total 8.9 mg/dL (7.6-11.0); Carbon Dioxide 24.6 mmol/L (21.0-32.0); Chloride 104 mmol/L (98-108); Glucose 108 mg/dL (70-99); Potassium 3.5 mmol/L (3.3-5.1)
--- NOTE | 2024-11-14 06:21 | EDS_ITS ---
HPI History of Present Illness Chief Complaint: Flank Pain Informant: patient and spouse/S.O. Narrative Narrative: Patient is a 79-year-old male with past medical history of COPD requiring nasal cannula oxygen 28/08. He states that a few hours ago he had sudden onset sharp pain near the right lower abdomen/testicle. He states there was no trauma. He denies any dysuria or hematuria. He reports that the pain then began to radiate towards the right abdomen/back. He reports that he had a kidney stone multiple years ago and that this feels slightly similar nature and with concern for this presents for evaluation [facility] Medical History sebaceous cyst back Family hx of colon cancer COPD (chronic obstructive pulmonary disease) Back problem Home Medications ?Medication ?Instructions ?Recorded ?Last Taken ?Type fluticasone fur. 100 mcg-umeclid 1 puff inhalation RYAN LY 10/06/18 10/05/18 History 62.5 mcg-vilant 25 mcg inhalat.powder rosuvastatin 10 mg tablet 20 mg PO DAILY 10/06/18 Unkn own History nintedanib 150 mg capsule (Ofev) 150 mg PO BID 4 Unknown History vitamin D3 25 mcg (1,000 unit)-vit 1 tab PO DAILY corin min 12/30/23 12/29/23 11:23 History K2 90 mcg disintegrating tablet 1 TAB (D3 Plus K2 Dots) albuterol sulfate 90 mcg/actuation 2 inh inhalation Q4 H 11/14/24 Unknown History breath activated powder inhaler,sensor cephalexin 500 mg capsule 500 mg PO BID 7 days #14 cap s 11/14/24 Unknown Rx escitalopram oxalate 10 mg tablet 10 mg PO QHS 5 Unknown History furosemide 20 mg tablet 20 mg PO DAILY 11/14/24 Unkn own History ibuprofen 600 mg tablet 600 mg PO TID PRN pain #30 t abs 11/14/24 Unknown Rx omeprazole 40 mg capsule,delayed 40 mg PO DAILY Unknown History release ondansetron 4 mg disintegrating 4 mg PO TID PRN nausea and 11/14/24 Unknown Rx tablet vomiting #21 tabs oxycodone-acetaminophen 5 mg-325 1 tab PO Q6H PRN pain 3 days #12 11/14/24 Unknown Rx mg tablet (Endocet) tabs tamsulosin 0.4 mg capsule (Flomax) 0.4 mg PO DAILY 14 days #14 caps 11/14/24 Unknown Rx tirzepatide 5 mg/0.5 mL 5 mg subcut QWEEK 11/14/24 U nknown History subcutaneous pen injector (Mounjaro) Allergy/AdvReac Type Severity Reaction Status Date / Time No Known Allergies Allergy Verified 12/30/23 05:56 Family History Mother Breast cancer Daughter Colon cancer Surgical History history excision sebaceous cyst right lower ba (~09/22/19) Hx of colonoscopy Hx of squamous cell carcinoma excision History of basal cell carcinoma (BCC) excision Social History Smoking Status: Light Smoker (<10/day) second hand exposure: No alcohol intake: current alcohol intake frequency: holidays/special occasions only substance use type: does not use caffeine: Yes what type of physical activity do you participate in: none frequency: does not exercise ROS ROS ED Constitutional Constitutional ED: Denies chills or fever(s) ENT ENT ED: Denies sore throat Cardiovascular Cardiovascular: Denies chest pain Respiratory/Chest Respiratory/Chest: Reports cough, dyspnea and other Details: Patient reports cough and shortness of breath are chronic and at baseline Gastrointestinal Gastrointestinal: Reports abdominal pain; Denies diarrhea, nausea or vomiting Genitourinary Genitourinary ED: Denies dysuria or hematuria Musculoskeletal Musculoskeletal: Reports back pain Integumentary Denies rash Neurologic Neurologic: Denies headache(s) Hematologic/Lymphatic Hematologic/Lymphatic: Denies easy bleeding or easy bruising EXAM Physical Exam Const Vital Signs: 11/14/24 03:28 11/14/24 03:30 11/14/24 05:30 Temperature 98.4 F Temperature Source Oral Pulse Rate 81 Respiratory Rate 18 16 Blood Pressure 117/83 H Blood Pressure Mean 94 Pulse Ox 93 Oxygen Delivery Method Nasal Cannula Oxygen Flow Rate (L/min) 5 Positive well nourished and well developed General Appearance ED: well developed; Negative for pallor HEENT HEENT Narrative: Normocephalic atraumatic Eyes PERRL and EOMs intact bilaterally General Eye ED: Negative for scleral icterus Neck supple and no JVD Resp normal respiratory effort Resp Narrative: Breath sounds are diminished throughout with faint rhonchi and expiratory wheezing consistent with history of COPD but no signs of respiratory distress Cardio regular rate and regular rhythm Rate: other Other Details: Radial and carotid pulses are equal and symmetric GI non-distended and no masses GI Narrative: Abdomen is soft and nondistended with normal active bowel sounds. There is pain with palpation in the right lower quadrant without voluntary guarding or rigidity or pulsatile mass Auscultation: normoactive bowel sounds Palpation: soft Narrative: Normal uncircumcised male No blood or discharge from the urethral meatus No testicular swelling or masses noted No overlying soft tissue changes to suggest Young's gangrene Back/Spine Back/Spine Narrative: Positive right CVA pain present Extremity normal to inspection Neuro oriented x3, CN's II-XII intact bilaterally and no sensory deficits noted Sensorium / Orientation: alert Motor Exam: strength 5/5 throughout Psych mental status grossly normal Skin no rashes or lesions noted and no wounds General Skin Exam: Negative for jaundice or pallor MDM MDM MDM Narrative Medical decision making narrative: Patient arrived to the ER with stable vitals. He reports sudden onset pain along the right lower abdomen radiating towards the groin and then towards the back. Differential diagnosis is for UTI versus pyelonephritis versus kidney stone. As kidney stone is the most likely cause of his pain I felt need for basic lab work with urine sample and noncontrast CT of the abdomen and pelvis. Blood work revealed no sign of acute kidney injury or signs of urosepsis. CT scan confirmed a 4 mm stone in the distal right ureter. After receiving medication in the ER the patient's pain improved as well. Therefore at this time he does not have urosepsis or acute kidney injury he is not intractable pain and his history and exam correlate with the stone found on CT scan. Therefore there is no need for emergent urology consultation but patient can be placed on symptomatic medication and is otherwise safe to follow-up with them as an outpatient History & Record Review Discussion w/independent historian: Patient and Significant other Lab Data Attestation: I reviewed the patient's lab results. Labs: Laboratory Results - last 24 hr 11/14/24 11/14/24 11/14/24 04:00 04:54 05:00 WBC 9.1 RBC 5.69 Hgb 16.7 H Hct 50.4 MCV 88.6 MCH 29.3 MCHC 33.1 RDW Std Deviation 47.6 H RDW Coeff of Maximus 14.7 H Plt Count 256 MPV 9.6 Immature Gran % (Auto) 0.200 Neut % (Auto) 48.1 Lymph % (Auto) 37.5 [place] % (Auto) 11.4 H Eos % (Auto) 2.1 Baso % (Auto) 0.7 Absolute Neuts (auto) 4.4 Absolute Lymphs (auto) 3.42 Nucleated RBC % 0 Sodium Cancelled 139 Potassium Cancelled 3.5 Chloride Cancelled 104 Carbon Dioxide Cancelled 24.6 Anion Gap Cancelled 10 BUN Cancelled 18 Creatinine Cancelled 1.05 Estim Creat Clear Calc Cancelled Est GFR (MDRD) Non-Af Cancelled 71 BUN/Creatinine Ratio Cancelled 17.5 Glucose Cancelled 108 H Calcium Cancelled 8.9 Urine Color Yellow Urine Clarity Clear Urine pH 6.0 Ur Specific [place] 1.020 Urine Protein 30 H Urine Glucose (UA) Normal Urine Ketones Negative Urine Occult Blood 250 H Urine Nitrite Negative Urine Bilirubin Negative Urine Urobilinogen 1 H Ur Leukocyte Esterase Negative Urine RBC 25-50 SEEN Urine WBC 0-5 SEEN Ur Squamous Epith Cells 0 SEEN Urine Bacteria RARE Urine Mucus 0 SEEN Radiography Diagnostic Testing: Clinical Impression(s) from Imaging Studies Abdomen/Pelvis CT 11/14/24 04:04 IMPRESSION: Emphysema. Bilateral basilar atelectatic pulmonary changes. Diffuse spondylosis. Prostatomegaly. Scattered prostatic calcifications. Atherosclerotic, tortuous ectatic aorta and iliac arteries. Left renal simple cyst measuring 1.2 cm. Bilateral nonobstructing renal stones with the largest measuring 7 mm. Extravesical ureterocele is noted at the level of the right ureterovesical junction measuring 2.7 x 2.5 cm. Obstructing stone of the right ureter measuring 4.2 mm is noted in the most distal aspect of the right ureter just proximal to the right ureterocele. Mild diffuse thickening of the bladder suggestive of cystitis. Fat containing umbilical hernia without incarceration. Reading [facility] Discharge Plan Triage Chief Complaint: Flank Pain Other Complaint: Male Pain/Injury ED Provider: John Shipman Dx/Rx/DC Orders Clinical Impression: Kidney stone on right side, Renal colic, COPD (chronic obstructive pulmonary disease) Instructions: ED Kidney Stone with Pain Prescriptions: New tamsulosin [Flomax] 0.4 mg capsule 0.4 mg PO DAILY 14 Days Qty: 14 0RF ondansetron 4 mg tablet,disintegrating 4 mg PO TID PRN (Reason: nausea and vomiting) Qty: 21 0RF cephalexin 500 mg capsule 500 mg PO BID 7 Days Qty: 14 0RF oxycodone-acetaminophen [Endocet] 5-325 mg tablet 1 tab PO Q6H PRN (Reason: pain) 3 Days Qty: 12 0RF ibuprofen 600 mg tablet 600 mg PO TID PRN (Reason: pain) Qty: 30 0RF No Action rosuvastatin 10 MG tablet 20 mg PO DAILY [id number]-kidzcvqzg-hzberyvh 1 EACH blister with device 1 puff inhalation DAILY Patient Comments: INHALE 1 PUFF BY MOUTH ONCE DAILY D3 Plus K2 Dots 25 mcg (1,000 unit)-90 mcg tablet,disintegrating 1 tab PO DAILY Ofev 150 mg capsule 150 mg PO BID furosemide 20 mg tablet 20 mg PO DAILY escitalopram oxalate 10 mg tablet 10 mg PO QHS Mounjaro 5 mg/0.5 mL pen injector 5 mg subcut QWEEK albuterol sulfate 90 mcg/actuation aero powdr breath act w/sensor 2 inh inhalation Q4H omeprazole 40 mg capsule,delayed release(DR/EC) 40 mg PO DAILY Primary Care Provider: Nickie Patterson Referrals: Luis Carlos Fatima MD [Med Staff - Active Staff, Urology] Nickie Patterson DO [Primary Care Provider, Internal Medicine] Activity Restrictions/Additional Instructions: You have a 4.2 mm kidney stone located on your right side near the bladder. Please keep yourself well-hydrated and take the prescribed medications as directed to help pass the stone. Follow-up with urology for repeat evaluation. If you develop intractable pain despite taking your medication or a fever or have any further concerns please return to the ER for repeat evaluation Print Language: Belarusian Disposition Disposition: Home, Self Care Discharge Date/Time: 11/14/24 06:37
[2024-11-14 06:36] VITALS: BP 132/79; PULSE 67; RESP 18; TEMP 36.6; O2SAT 97
== END 2024-11-14 06:37 | disposition home or self-care (01) ==
PROVIDERS: Emergency Provider Emergency Medicine; PCP Internal Medicine; Visit Provider Emergency Medicine
DX: N20.0 Calculus of kidney (principal); J44.9 Chronic obstructive pulmonary disease, unspecified; R05.9 Cough, unspecified; R06.00 Dyspnea, unspecified; F17.210 Nicotine dependence, cigarettes, uncomplicated; Z80.0 Family history of malignant neoplasm of digestive organs; Z99.81 Dependence on supplemental oxygen
CPT/HCPCS: 74176; 80048; 81001; 85025; 96360; 96361; 99283; A4216

== ENCOUNTER 2024-11-28 17:55 | Observation (INO) | payer MEDICARE, SELFPAY ==
[2024-11-28] VITALS (15 sets, daily range): BP systolic 117–144; BP diastolic 70–86; PULSE 67–78; RESP 16–18; TEMP 36.1–36.9; O2SAT 67–98; BMI 31.7; BMI 32.3
[2024-11-28] MEDS: Lactated Ringers 1,000 ML 15 ML IV (12:10)
--- NOTE | 2024-11-28 12:24 | PCM.PRE.AN2 ---
ASA Classification* ASA Classification ASA Classification: 3 Assessment & Plan Anesthesia* Anesthesia Assessment Anesthesia Assessment: Discussed sedation and/or anesthesia options, risks, benefits, and alternatives with patient/parents/legal guardian/POA. Questions invited. The patient/parents/legal guardian/POA seems to understand and agrees to proceed with anesthesia plan. Reviewed the physical assessment, medical history, allergy history and patient home medications list prior to surgery/procedure/anesthetic and documented any changes. Performed airway and anesthesia risk assessments. Anesthesia Type Anesthesia Type: General History Source History Obtained from:: Patient and Chart Anesthesia Focused Assessment* Temperature: 98.4 F Pulse Rate: 72 Blood Pressure: 126/78 Respiratory Rate: 18 Pulse Ox: 97 Oxygen Delivery Method: Nasal Cannula (4L) Oxygen Flow Rate (L/min): 4 Airway Assessment Mouth opens: >3 cm Mallampati Score: II Teeth Condition: Intact Neck Range of motion (ROM): Full ROM Labs Anesthesia Preop lab: CBC WBC, (4.4-11.0) 9.1 K/mm3 11/14/24, 04:00 RBC, (4.6-6.2) 5.69 M/mm3 11/14/24, 04:00 Hgb, (13.0-16.5) 16.7 g/dL H 11/14/24, 04:00 Hct, (40-54) 50.4 % 11/14/24, 04:00 Plt Count, (150-450) 256 K/mm3 11/14/24, 04:00 CHEMISTRY Potassium, (3.3-5.1) 3.5 mmol/L 11/14/24, 04:54 Sodium, (133-145) 139 mmol/L 11/14/24, 04:54 Magnesium, (1.6-2.6) 1.8 mg/dL 12/30/23, 06:15 Phosphorus, (2.5-4.9) 2.1 mg/dL L 12/30/23, 06:15 BUN, (4-19) 18 mg/dL 11/14/24, 04:54 Creatinine, (0.70-1.20) 1.05 mg/dL 11/14/24, 04:54 Glucose, (70-99) 108 mg/dL H 11/14/24, 04:54 COAG Pre-Assessment Diagnosis/Proposed Procedure Planned Operative Procedure(s): CYSTO URETEROSCOPY RETRO LASER STENT RIGHT Anesthesia History Anesthesia History - tobacco sizer: Anesthesia History - tobacco sizer Hx Hospitalization Yes: 12/2023 DIVERTICULITIS 11/27/24 14:29 Any Problems With Anesthesia No 11/27/24 14:29 Cholinesterase deficiency No 11/27/24 14:29 You/Your Family Experience No 11/27/24 14:29 fever (hyperthermia) with Relationship Recent Exposure to Contagious No 11/28/24 12:05 Disease Does patient have nerve No 11/27/24 14:29 stimulator Patient instructed to have device shut off --Does patient have Pacemaker No 11/28/24 12:05 or ICD? When Was Last Pacemaker Check QUESTION #4 FULL TEXT: You/Your Family Experience fever (hyperthermia) with Anesthesia Any additional information?: No Last Oral Intake Last Oral intake: Last Oral Intake NPO since 08:00 11/28/24 12:05 Meds taken in AM with sips of Yes 11/28/24 12:05 water? Meds patient instructed to lasix 11/28/24 12:05 take am of surgery Any additional information?: No PONV PONV - tobacco sizer: PONV - tobacco sizer Female No 11/27/24 14:29 HX of Motion Sickness No 11/27/24 14:29 HX of N/V After Surgery No 11/27/24 14:29 Non-Smoker Yes 11/27/24 14:29 Duration of Surgery greater Yes 11/27/24 14:29 than 60 minutes Number of Risk Factors 2 11/27/24 14:29 PONV Score Moderate Risk 11/27/24 14:29 Any additional information?: No Height & Weight Height & Weight: Anesthesia: Height & Weight Height 6 ft 11/28/24 12:05 Weight: 106.141 kg 11/28/24 12:05 Body Mass Index (BMI) 31.7 11/28/24 12:05 Respiratory Assessment Respiratory Assessment - tobacco sizer: Respiratory Tract Infection Hx - tobacco sizer Hx Respiratory Tract Infection No 11/27/24 14:29 Any additional information?: No STOP Sleep Apnea STOP Sleep Apnea - tobacco sizer: STOP Sleep Apnea - tobacco sizer Hx Hypertension No 11/27/24 14:29 Hx Sleep Apnea Yes 11/27/24 14:29 CPAP Yes 11/27/24 14:29 BIPAP No 11/27/24 14:29 Do you snore loudly (louder than talking or can be heard Do you often feel tired/ fatigued/ sleepy during daytime? Has anyone observed you stop breathing during sleep? STOP Results Positive 11/27/24 14:29 QUESTION #5 FULL TEXT : Do you snore loudly (louder than talking or can be heard through closed doors)? Any additional information?: No Tobacco Use History Tobacco Use History - tobacco sizer: Tobacco Use History - tobacco sizer Tobacco Use Smoking Status Former smoker 11/27/24 14:29 Hx Tobacco Use No 11/27/24 14:29 Years Smoking Packs Smoked per Day Smoking Cessation Date was Yes - quit smoking within 15 11/27/24 14:29 within the last 15 years years Hx Smoking Cessation Date Hx Smoking Cessation Counseling Any additional information?: No Hematologic Medial History Hematologic Hx - tobacco sizer: Hematologic Medical Hx - environmental health safety engineer Hx of Blood Transfusion No 11/27/24 14:29 Hx of Transfusion in last 3 No 11/27/24 14:29 Months Date of Last Transfusion (if within last 3 months) Ever experience any problems No 11/27/24 14:29 with transfusion(s)? Specify any problems Hx of Preganancy in last 3 N/A 11/27/24 14:29 Months Nurse Filling Out Transfusion DSCHRIBER 11/27/24 14:29 & Questions: Date: 11/27/24 11/27/24 14:29 Time: 14:30 11/27/24 14:29 Patient unable to answer at this time (ie. confused, unrespo Any additional information?: No /Reproduction History /Reproductive History - tobacco sizer: /Reproductive Hx- tobacco sizer Hx Now No 11/27/24 14:29 Gestational Age (in weeks): EDC: Hx Hx Para Hx Section SAB No 11/27/24 14:29 Any additional information?: No Active Medications Active Medications: Current Medications Generic Name Dose Route Start Last Admin Trade Name Freq PRN Reason Stop Dose Admin Lactated Ringer's 1,000 mls @ 15 mls/hr 11/28/24 11:45 11/28/24 12:10 IV 15 mls/hr .Q48H ELENA Administration Cefazolin Sodium 2 gm/ Sodium 110 mls @ 200 mls/hr 11/28/24 12:16 Chloride IV 11/28/24 12:48 INTRAOP ONE PFSH Medical History Gastric reflux Partial edentulism, class III Alcohol use High cholesterol Back pain History of diverticulitis Former smoker Hx of pulmonary fibrosis On home oxygen therapy COPD (chronic obstructive pulmonary disease) Shortness of breath on exertion History of edema History of echocardiogram sebaceous cyst back Family hx of colon cancer Home Medications Medication Instructions Recorded Last Taken Type fluticasone fur. 100 mcg-umeclid 1 puff inhalation DAILY 10/06/18 10/05/18 History 62.5 mcg-vilant 25 mcg inhalat.powder rosuvastatin 10 mg tablet 20 mg PO QHS 10/06/18 Unknown History nintedanib 150 mg capsule (Ofev) 150 mg PO BID 12/30/23 Unknown History vitamin D3 25 mcg (1,000 unit)-vit 1 tab PO DAILY vitamin 12/30/23 12/29/23 11:23 History K2 90 mcg disintegrating tablet 1 TAB (D3 Plus K2 Dots) albuterol sulfate 90 mcg/actuation 2 inh inhalation Q4H PRN shortness 11/14/24 Unknown History breath activated powder of breath or wheezing inhaler,sensor escitalopram oxalate 10 mg tablet 10 mg PO QHS 11/14/24 Unknown History furosemide 20 mg tablet 20 mg PO DAILY 11/14/24 11/28/24 History ibuprofen 600 mg tablet 600 mg PO TID PRN pain #30 tabs 11/14/24 Unknown Rx omeprazole 40 mg capsule,delayed 40 mg PO DAILY 11/14/24 Unknown History release ondansetron 4 mg disintegrating 4 mg PO TID PRN nausea and 11/14/24 Unknown Rx tablet vomiting #21 tabs oxycodone-acetaminophen 5 mg-325 1 tab PO Q6H PRN pain 3 days #12 11/14/24 Unknown Rx mg tablet (Endocet) tabs tirzepatide 5 mg/0.5 mL 5 mg subcut SA 11/14/24 11/22/24 History subcutaneous pen injector (Luizunkylahro) Allergy/AdvReac Type Severity Reaction Status Date / Time No Known Allergies Allergy Verified 11/28/24 12:03 Family History Mother Breast cancer Daughter Colon cancer Surgical History History of bronchoscopy Hx of lithotripsy history excision sebaceous cyst right lower ba (~09/22/19) Hx of colonoscopy Hx of squamous cell carcinoma excision History of basal cell carcinoma (BCC) excision Social History Smoking Status: Former smoker second hand exposure: No alcohol intake: current alcohol intake frequency: holidays/special occasions only substance use type: does not use caffeine: Yes what type of physical activity do you participate in: none frequency: does not exercise Addt'l Information Additional Findings: Patient oxygen dependent. Last took Sunday11/22/24 Review of Systems (Anesthesia) ROS Narrative System reviewed and no additional complaints, except as documented.
--- NOTE | 2024-11-28 13:56 | SUR.PREOP ---
pt given update about surgery delay, family at bedside.
--- NOTE | 2024-11-28 14:13 | HP.PCM_ITS ---
History and Physical 79 yo male has a stone in the distal Right ureter 6mm stone appear to have a diverticulum as well. pain down to his testicle ALLERGIES: None MEDICATIONS: Albuterol Sulfate HFA 108 (90 Base) MCG/ACT Aerosol Solution Breztri Aerosphere 160-9-4.8 MCG/ACT Aerosol Cephalexin 500 MG Tablet Furosemide 20 MG Tablet Ibuprofen 600 MG Tablet Mounjaro 5 MG/0.5ML Solution Auto-injector Ofev 150 MG Capsule Omeprazole 40 MG Capsule Delayed Release Ondansetron HCl 4 MG Tablet oxyCODONE-Acetaminophen 5-325 MG Tablet Rosuvastatin Calcium 20 MG Tablet Tamsulosin HCl 0.4 MG Capsule Vitamin K2-Vitamin D3 90-125 MCG Capsule PAST SURGICAL HISTORY: None PAST MEDICAL HISTORY: Neoplasm of unspecified behavior of bone, soft tissue, and skin Urinary calculus, unspecified Immunizations: None FAMILY HISTORY: None SOCIAL HISTORY: Marital Status: Preferred Language: Kuwaiti; Ethnicity: Not Or ; Race: White Current Smoking Status: Patient does not smoke anymore. Tobacco Use Assessment Completed: Used Tobacco in last 30 days? Smoking cessation counseling was provided. Does not use smokeless tobacco. Does drink. Does not use drugs. Drinks 1 caffeinated drink per day. Has not had a blood transfusion. REVIEW OF SYSTEMS: Constitutional: Patient reports chills and weight gain. Patient denies fever and weight loss. Eyes: Patient reports cataracts. Patient denies blurry vision and glaucoma. Ears, Nose, Mouth, Throat: Patient reports sleep apnea. Patient denies hearing loss and sinus infections. Cardiovascular: Patient reports swollen ankles. Patient denies pacemaker/defib, irregular heartbeat, and chest pains. Respiratory: Patient reports shortness of breath, oxygen, and cpap machine. Patient denies wheezing. Gastrointestinal: Patient reports diarrhea and constipation. Patient denies abdominal pain, nausea, and vomiting. Genitourinary: Patient reports history of stones. Patient denies frequent urination, urinary retention, get up at night to void, urinary incontinence, painful urination, blood in the urine, frequent uti's, difficulty starting stream, weak stream/scanty, and bedwetting. Musculoskeletal: Patient reports back pain. Patient denies sore muscles and gout. Integumentary/Skin: Patient reports skin cancer. Patient denies rash and chronic itching. Neurological: Patient denies falling/unsteady, paralysis, and stroke/tia. Hematologic/Lymphatic: Patient denies abnormal bleeding, blood transfusion, swollen lymph nodes, deep venous thrombosis, and pulmonary embolism. VITAL SIGNS: 11/27/2024 10:05 AM Weight 235 lb / 106.59 kg Height 72 in / 182.88 cm BP 112/78 mmHg Hypertension follow-up recommended with primary provider/[facility] [employer] provider. BMI 31.9 kg/m² - BMI Counseling was provided. PHYSICAL EXAM: Constitutional: Well-nourished. No physical deformities. Normally developed. Good grooming. Neck: Neck symmetrical, not swollen. Normal tracheal position. Respiratory: No labored breathing, no use of accessory muscles. Cardiovascular: Normal temperature, normal extremity pulses, no swelling, no varicosities. Lymphatic: No enlargement of neck, axillae, groin. Skin: No paleness, no jaundice, no cyanosis. No lesion, no ulcer, no rash. Neurologic / Psychiatric: Oriented to time, oriented to place, oriented to person. No depression, no anxiety, no agitation. Gastrointestinal: No mass, no tenderness, no rigidity, non obese abdomen. Eyes: Normal conjunctivae. Normal eyelids. Ears, Nose, Mouth, and Throat: Left ear no scars, no lesions, no masses. Right ear no scars, no lesions, no masses. Nose no scars, no lesions, no masses. Normal hearing. Normal lips. Musculoskeletal: Normal gait and station of head and neck. Complexity of Data: Source Of History: Patient Records Review: Previous Patient Records Urine Test Review: Urinalysis X-Ray Review: C.T. Abdomen/Pelvis: Reviewed Films. Reviewed Report. Discussed With Patient. PROCEDURES: None ASSESSMENT: ICD-10 Details 1 Calculus of ureter - N20.1 Right, Undiagnosed New Problem PLAN: Document Letter(s): Created for Patient: Clinical Summary Notes: add on for tomorrow at [facility] for laser right stent
[2024-11-28] MEDS: Midazolam 2 MG/2 ML Syringe IV (14:41)
[2024-11-28] MEDS: Cefazolin 1 GM/5 ML Vial 2 GM IV (14:42)
[2024-11-28] MEDS: Lidocaine 1% (5 ml sdv) 5 ML Vial IV (14:43)
[2024-11-28] MEDS: fentaNYL 100 MCG/2 ML Ampul IV (15:03)
--- NOTE | 2024-11-28 15:06 | DCINST_ITS ---
Discharge Instructions DC O2, CPAP, BIPAP needs Home O2 Discharge instructions: No Dressing / Incision Discharge Activity: Return to Normal Activity and May Not Drive (while taking narcotic pain medications.) Dressing / Incision Call your doctor if you observe: Fever of 101 or Higher Follow Up Care Please Follow Up With: Luis Carlos Fatima MD When: Call [phone] for an appointment Test Results: Test results from this visit will be discussed in further detail at your follow- up appointment, if applicable. Discharge Plan Admission Primary Reason for Your Visit: laser stone and stent Attending Provider: Luis Carlos Fatima Primary Care Provider: Nickie Patterson Instructions Print Language: Indonesian Discharge Orders/Prescriptions Prescriptions: New ciprofloxacin HCl [Cipro] 500 mg tablet 500 mg PO BID Qty: 14 0RF Continued rosuvastatin 10 MG tablet 20 mg PO QHS [id number] 1 EACH blister with device 1 puff inhalation DAILY Patient Comments: INHALE 1 PUFF BY MOUTH ONCE DAILY D3 Plus K2 Dots 25 mcg (1,000 unit)-90 mcg tablet,disintegrating 1 tab PO DAILY Ofev 150 mg capsule 150 mg PO BID furosemide 20 mg tablet 20 mg PO DAILY escitalopram oxalate 10 mg tablet 10 mg PO QHS Mounjaro 5 mg/0.5 mL pen injector 5 mg subcut SA albuterol sulfate 90 mcg/actuation aero powdr breath act w/sensor 2 inh inhalation Q4H PRN (Reason: shortness of breath or wheezing) omeprazole 40 mg capsule,delayed release(DR/EC) 40 mg PO DAILY ondansetron 4 mg tablet,disintegrating 4 mg PO TID PRN (Reason: nausea and vomiting) Qty: 21 0RF oxycodone-acetaminophen [Endocet] 5-325 mg tablet 1 tab PO Q6H PRN (Reason: pain) 3 Days Qty: 12 0RF ibuprofen 600 mg tablet 600 mg PO TID PRN (Reason: pain) Qty: 30 0RF Referrals / Follow Up: Nickie Patterson DO [Primary Care Provider, Internal Medicine] Disposition Disposition (needs filled in before D/C Order can be placed): Home, Self Care
--- NOTE | 2024-11-28 15:07 | PCM.OPRPT ---
Operative Report (Standard) Operative Information Date of Procedure: 11/28/24 Pre-Operative Diagnosis: Right ureteral calculus Post-Operative Diagnosis: The same Surgery/Procedure Performed: Cystoscopy, balloon dilation of the right ureter, right ureteroscopy, laser lithotripsy of stone right stent placement right retrograde pyelogram injury/safety hazard assessment: No Type of Anesthesia: General RN Documented Start/Stop Times: Operation Date: 11/28/24 13:30 Case Time Into Pre-Op 11/28/24 11:36 Out of Pre-Op 11/28/24 14:27 Anesthesia Start 11/28/24 14:33 Into Room 11/28/24 14:33 Procedure Start 11/28/24 14:46 Procedure End 11/28/24 15:04 Procedure Start Time: 14:16 Procedure Stop Time: 15:07 Select all DRAINS/GRAFTS/IMPLANTS that apply: Drains Drain details: right stent 6 fr x 26 cm Estimated Blood Loss: none Specimen collected: No Description of surgery: This is a patient who presents to the hospital for treatment for an obstructing distal ureter calculi. I discussed with the patient how the surgery would be performed and we reviewed the risks and benefits of the surgery. The risk and benefits include the risk of failure to remove the stone completely and that the patient may need multiple procedures. We discussed the risk of an infection, the risk of bleeding. We discussed the very rare risk of serious complicated injury to the ureter. The patient understands that if the stone is not able to be removed safely that we may abort the procedure and place a stent. After full discussion and all questions address with the patient the consent form was signed the side was marked appropriately and the patient was taken back to the operating room for the procedure. The patient was taken back to the operating room. After induction of anesthesia by the anesthesiology team the patient was placed in dorsolithotomy position. The genitals were prepped and draped in usual sterile fashion. I went into the bladder with a 21 Kosovan rigid cystourethroscope through the urethra. Upon entering the bladder I inspected the trigone the left and right ureteral orifice and the bladder itself. He had a hutch diverticulum on the right side next the ureteral orfince. I then cannulated the right ureteral orifice and advanced a 0.038 Glidewire up into the kidney. Then over the Glidewire I advanced a 5 Fr Ureteral catheter and performed a retrograde pyelogram with about 10cc of contrast, to delineate the anatomy and identify the stone location. Then a ureteral balloon dilator was advanced over the wire and the distal ureter was balloon dilated with a 12 Fr x 5cm balloon dilator. After 3 minutes of dilating the ureter the balloon was backloaded off the 0.038 glidewire then the safety wire was left in place. I then placed a second 0.038 Guidewire as a working wire and over the working 0.038 guidewire I went in with the 7.5fr ureteroscope. I was able to go inside with the 7.5Fr utereroscope and I pulled out the working guidewire and then through the ureteroscope I engage the stone in the distal ureter with laser lithotripsy using a 200miron laser fiber with energy setting of 5 Hertz and 1.0 J until the stone was lasered into tiny little pieces that should pass on their own. A retrograde pyelogram was performed with 10cc of contrast and no extravasation of contrast or perforation was identified in the ureter there was some mild irritation of the ureter where the stone was located. I then backed out of the ureter left the wire in place and then over the 0.038 guidewire I placed a double coiled pigtail ureteral stent. The ureteral stent was advanced over the 0.038 guidewire under direct fluoroscopic guidance and direct cystoscopic visual guidance, once the stent was in good position I pulled the wire and the stent coiled in the kidney and bladder in good position. I then drained the patient's bladder and the cystoscope was removed and the patient was taken back to the recovery room in good position. The patient was given discharge instructions to call the office for instructions on when to come to the office to have the stent removed. Surgical Findings: stone laser into small pieces and stent placed Complications Complications: No Admit VTE Documentation VTE Present on Admission: No VTE Mechan Device Prophylaxis: SCD's
--- NOTE | 2024-11-28 15:19 | PCM.POST.ANE ---
Anesthesia: Postop Eval I Current Vital Signs Temperature: 97.3 F Pulse Rate: 78 Blood Pressure: 124/72 Respiratory Rate: 18 Pulse Ox: 95 Assessment Airway patent: Yes Spontaneous unlabored respirations: Yes nausea: No Vomiting: No Anesthesia Complication: No Fluid Hydration Crystalloid volume administer (ml): 1,000 Total IV fluid infused: 1,000 Progress Note Anesthesia document: Postop Eval 1 completed: Yes
--- NOTE | 2024-11-28 15:29 | POSTOPAN2_ITS ---
Anesthesia Postop Eval I Sum Postop Eval Completion status Anesthesia document: Postop Eval 1 completed: Yes Anesthesia Postop Eval I Summary Anesthesia Postop Eval I Summary: Anesthesia Postop Eval I: Assessment Summary Airway patent Yes 11/28/24 15:19 SEMI CONDUCTOR [email or web address] Spontaneous unlabored Yes 11/28/24 15:19 SEMI CONDUCTOR [email or web address] respirations Mental status nausea No 11/28/24 15:19 SEMI CONDUCTOR [email or web address] Vomiting No 11/28/24 15:19 SEMI CONDUCTOR [email or web address] Anesthesia Postop Eval I: Fluid Summary Crystalloid volume administer 1,000 11/28/24 15:19 SEMI CONDUCTOR [email or web address] (ml) Colloids volume administered ( ml) Blood Product volume administered (ml) Total IV fluid infused 1,000 11/28/24 15:19 SEMI CONDUCTOR [email or web address] Anesthesia Postop Eval I: Summary Notes Anesthesia Complication No 11/28/24 15:19 SEMI CONDUCTOR [email or web address] Anesthesia Complication Comment: Post-operative progress note Anesthesia: Postop Eval II Evaluation Mental status: Awake Pain Level: 0 nausea: No Vomiting: No
--- NOTE | 2024-11-28 15:29 | PCM.POSTANE2 ---
Anesthesia Postop Eval I Sum Postop Eval Completion status Anesthesia document: Postop Eval 1 completed: Yes Anesthesia Postop Eval I Summary Anesthesia Postop Eval I Summary: Anesthesia Postop Eval I: Assessment Summary Airway patent Yes 11/28/24 15:19 GRAIN [email or web address] Spontaneous unlabored Yes 11/28/24 15:19 GRAIN UNLOADER [email or web address] respirations Mental status nausea No 11/28/24 15:19 GRAIN [email or web address] Vomiting No 11/28/24 15:19 GRAIN UNLOADER [email or web address] Anesthesia Postop Eval I: Fluid Summary Crystalloid volume administer 1,000 11/28/24 15:19 GRAIN [email or web address] (ml) Colloids volume administered ( ml) Blood Product volume administered (ml) Total IV fluid infused 1,000 11/28/24 15:19 GRAIN UNLOADER [email or web address] Anesthesia Postop Eval I: Summary Notes Anesthesia Complication No 11/28/24 15:19 GRAIN UNLOADER [email or web address] Anesthesia Complication Comment: Post-operative progress note Anesthesia: Postop Eval II Evaluation Mental status: Awake Pain Level: 0 nausea: No Vomiting: No
--- NOTE | 2024-11-28 16:54 | SUR.PHASEII ---
1650 pt experiencing spasm like pain to right lower abdomen. stent string no longer visible. pain 10/10 and pt leg is twitching with the pain. morphine given iv. dr florence gomez.
[2024-11-28] MEDS: Lactated Ringers 1,000 ML 75 ML IV (18:52)
[2024-11-29 02:51] VITALS: RESP 16; O2SAT 94
[2024-11-29 06:00] VITALS: BP 120/74; PULSE 80; RESP 16; TEMP 36.8; O2SAT 94
--- NOTE | 2024-11-29 07:16 | PCM.PN.GU ---
Subjective Subjective post op pain resolved home today follow up as planed Objective Data Objective Data Vital Signs: Vital Signs Temp Pulse Resp BP Pulse Ox O2 Del Method O2 Flow Rate 98.2 F 80 16 120/74 94 Nasal Cannula 4 11/29/24 06:00 11/29/24 06:00 11/29/24 06:00 11/29/24 06:00 11/29/24 06:00 11/29/24 06:00 11/29/24 06:00 Oxygen Flow Rate (L/min) 4 Oxygen Delivery Method Nasal Cannula Weight: 108.363 kg Body Mass Index (BMI) 32.3 Intake & Output: Intake and Output for Last 24 Hours 11/27/24 11/28/24 11/29/24 23:59 23:59 23:59 Intake Total 99.25 / 899.25 800 / 800 Output Total 210 / 960 750 / 750 Balance -110.75 / -60.75 50 / 50
[2024-11-29 07:54] VITALS: BP 110/63; PULSE 65; RESP 19; TEMP 36.4; O2SAT 95
[2024-11-29] MEDS: 0.9% Saline Lock 10 ML Syringe IV (08:07)
--- NOTE | 2024-11-29 08:41 | NURSING ---
After this RN in room and completed assessment, pt complaining to SANDER AND POLISHER that he was having alot of pain. Pt stated to me that he "had to stop eating b/c it was a 10 out of 10 pain" but now its slightly better but still there. Rates pain 5 out of 10. tylenol given since pt was recently nauseated. Will monitor.
== END 2024-11-29 10:41 | disposition home or self-care (01) ==
LOC: SDC 18:34 → MS3 18:34
PROVIDERS: Admitting Provider Urology; PCP Internal Medicine; Referring Provider Urology; Visit Provider Urology
DX: N20.1 Calculus of ureter (principal); J44.9 Chronic obstructive pulmonary disease, unspecified; N32.3 Diverticulum of bladder; Z79.51 Long term (current) use of inhaled steroids; Z87.891 Personal history of nicotine dependence; E78.00 Pure hypercholesterolemia, unspecified; K21.9 Gastro-esophageal reflux disease without esophagitis; Z79.899 Other long term (current) drug therapy
CPT/HCPCS: 52356; 52344; 00918; 76000; 96361; 96374; 96375; 99221; A4216; C1769; C2617; G0378; J2405

== ENCOUNTER → 2024-12-17 | Outpatient (CLI) | payer MEDICARE, SELFPAY ==
[2024-12-17 13:12] LABS: PSA,Total - Annual Screen 1.80 ng/mL (0.02-4.00); Vitamin D,25 Hydroxy 55.7 ng/mL (30-100)
== END | disposition home or self-care (01) ==
LOC: MTLAB 10:44
PROVIDERS: PCP Internal Medicine; Referring Provider Internal Medicine; Visit Provider Internal Medicine
DX: E55.9 Vitamin D deficiency, unspecified (principal); E11.9 Type 2 diabetes mellitus without complications; Z12.5 Encounter for screening for malignant neoplasm of prostate
CPT/HCPCS: 36415; 82306; 83036; 84153; G0103